=== PATIENT | male | born 1995 | race African-American/Black ===

== ENCOUNTER 2017-10-13 17:38 | Emergency (ER) | payer SELFPAY ==
[2017-10-13] MEDS ORDERED: CODEINE 30MG/APAP 300MG TAB ONE (20:14)
--- NOTE | 2017-10-13 20:55 | RAD REPORT ---
EXAM DESCRIPTION: RAD - Foot Left 3 View - 10/13/2017 8:08 pm CLINICAL HISTORY: Nonhealing wound left foot, left foot pain COMPARISON: None. FINDINGS: No acute or chronic fracture changes seen. No dislocation or periosteal reaction. No destr uctive bone process seen to suspect osteomyelitis. Soft tissue injury is evident over the dorsum of the foot near the ankle joint. No foreign body or ai r. IMPRESSION: Soft tissue injury is evident but no bone abnormality seen.
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
== END 2017-10-13 21:51 | disposition home or self-care (01) ==
LOC: ER 17:38
DX: S90.812A Abrasion, left foot, initial encounter (principal); V09.20XA Pedestrian injured in traffic accident involving unspecified motor vehicles, initial encounter; I10 Essential (primary) hypertension; Z91.030 Bee allergy status; F17.210 Nicotine dependence, cigarettes, uncomplicated
CPT/HCPCS: 99283

== ENCOUNTER 2017-12-01 23:38 | Emergency (ER) | payer SELFPAY ==
[2017-12-02] MEDS ORDERED: PANTOPRAZOLE 40MG TABLET PO ONE (00:26)
[2017-12-02 00:41] LABS: Absolute Lymphocytes (CBC) 4.6 K/uL (0.7-4.9); Absolute Monocytes 1.2 K/uL (0.1-1.3); Absolute Neutrophil 6.5 K/uL (1.8-8.0); Basophils % 0.5 % (0-1.3); Eosinophils % 2.1 % (0-4.4); Hematocrit 43.7 % (39.6-49.0); Lymphocytes % 36.6 % (15.3-44.8); MCH 29.4 pg (27.0-35.0); MCV 87.2 fL (80-100); MPV 8.6 fL (7.6-11.3); Monocytes % 9.8 % (3.3-12.3); RBC Red Blood Cell Count 5.01 M/uL (4.33-5.43)
--- NOTE | 2017-12-02 02:01 | ER ---
Nurse's Notes [facility] Name: Do Vega Age: 22 yrs Sex: Male : 1995 Arrival Date: 12/01/2017 Time: 23:39 Bed 18 Private MD: Diagnosis: Abdominal tenderness;Diarrhea, unspecified Presentation: 12/01 23:51 Presenting complaint: Patient states: Pt. c/o ABD pain and diarrhea x 2+ years. Pt. rk2 states that he has been seen in ED several times in past for same s/s and was told that he needed to see a specialist; however, he has never followed up. Pt. states noted bright and dark blood in his stools off and on as well. Nausea. Transition of care: patient was not received from another setting of care. Onset of symptoms was December 01, 2017. Risk Assessment: Do you want to hurt yourself or someone else? Patient reports no desire to harm self or others. Initial Sepsis Screen: Does the patient meet any 2 criteria? HR > 90 bpm. No. Patient's initial sepsis screen is negative. Does the patient have a suspected source of infection? Yes: No. Patient's initial sepsis screen is negative. Care prior to arrival: None. 23:51 Method Of Arrival: Ambulatory [facility] 23:51 Acuity: PRESTON 3 rk2 Historical: - Allergies: 23:54 Bees; rk2 - Home Meds: 12/02 02:13 lisinopril Oral [Active]; lp1 - PMHx: 12/01 23:54 Hypertension; rk2 - PSHx: 12/02 02:13 None; lp1 - Immunization history:: Adult Immunizations not up to date, Pneumococcal vaccine is not up to date, Flu vaccine is not up to date. - Social history:: Smoking status: Patient uses tobacco products, smokes one-half pack cigarettes per day. - Ebola Screening: : Patient negative for fever greater than or equal to 101.5 degrees Fahrenheit, and additional compatible Ebola Virus Disease symptoms No symptoms or risks identified at this time. Screenin/22 23:53 Abuse screen: Denies threats or abuse. Denies injuries from another. Nutritional lp1 screening: No deficits noted. Tuberculosis screening: No symptoms or risk factors identified. Fall Risk None identified. Assessment: 23:51 General: Appears in no apparent distress. Behavior is calm, cooperative, appropriate lp1 for age. Pain: Complains of pain in right lower quadrant and left lower quadrant Pain currently is 7 out of 10 on a pain scale. Quality of pain is described as sharp. Neuro: Level of Consciousness is awake, alert, obeys commands. Cardiovascular: Patient's skin is warm and dry. Respiratory: Respiratory effort is even, unlabored. GI: Abdomen is non-distended, Bowel sounds present X 4 quads. Abdomen is tender to palpation in right lower quadrant and left lower quadrant Reports cramping, diarrhea. : No signs and/or symptoms were reported regarding the genitourinary system. EENT: No signs and/or symptoms were reported regarding the EENT system. Derm: Skin is intact, Skin is dry, Skin is normal. Musculoskeletal: Circulation, motion, and sensation intact. 12/02 01:00 Reassessment: Patient appears in no apparent distress at this time. Patient and/or lp1 family updated on plan of care and expected duration. Pain level reassessed. Patient is alert, oriented x 3, equal unlabored respirations, skin warm/dry/pink. Vital Signs: 12/01 23:54 BP 179 / 102; Pulse 104; Resp 18; Temp 98.1; Pulse Ox 97% on R/A; rk2 12/02 01:00 BP 156 / 90; Pulse 82; Resp 18; Pulse Ox 100% on R/A; lp1 ED Course: 12/01 23:39 Patient arrived in ED. am2 23:51 Aurora Valladares, RN is Primary Nurse. lp1 23:54 Triage completed. rk2 23:54 Patient has correct armband on for positive identification. Placed in gown. Pulse ox lp1 on. NIBP on. 23:54 Arm band placed on. rk2 12/02 00:13 Tammy Cueva FNP-C is PHCP. snw 00:13 Linus Vega MD is Attending Physician. snw 00:38 Initial lab(s) drawn, by me, sent to lab. lp1 00:44 Patient moved to radiology via wheelchair. kw 00:44 X-ray completed. Patient tolerated procedure well. kw 00:44 Patient moved back from radiology. kw 00:45 Abdomen Acute Series XRAY In Process Unspecified. EDMS 02:12 No provider procedures requiring assistance completed. Patient did not have IV access lp1 during this emergency room visit. Administered Medications: 00:30 Drug: ProTONIX 40 mg Route: PO; lp1 01:30 Follow up: Response: No adverse reaction lp1 02:15 Not Given (Patient left prior to med administration): TORadol 60 mg IM once lp1 Outcome: 02:01 Discharge ordered by MD. knight 02:13 Discharged to home ambulatory. lp1 02:13 Condition: good 02:13 Discharge instructions given to patient, Patient left prior to receiving discharge papers and teaching 02:14 Patient left the ED. lp1 Signatures: Dispatcher [employer] EDMS Tammy Cueva, MICROBIOLOGY TECHNICIAN-C MICROBIOLOGY TECHNICIAN-Csnw Kay Hollingsworth Laura, RN RN lp1 Jessie Treviño am2 Anna Doan RN RN rk2
--- NOTE | 2017-12-02 02:02 | EDPHYS ---
Physician Documentation [facility] Name: Do Vega Age: 22 yrs Sex: Male : 1995 Arrival Date: 12/01/2017 Time: 23:39 Bed 18 Private MD: ED Physician Linus Vega HPI: 12/02 00:49 This 22 yrs old Black Male presents to ER via Ambulatory with complaints of Abdominal snw Pain, Rectal Bleeding. 00:49 The patient presents with abdominal pain that is diffuse. Onset: The symptoms/episode snw began/occurred gradually, years with exacerbations and remissions of symptoms. The symptoms do not radiate. Associated signs and symptoms: Pertinent positives: blood in stools, diarrhea, mucus stools. Severity of pain: At its worst the pain was moderate. The patient has experienced similar episodes in the past, chronically. The patient has not recently seen a physician. Historical: - Allergies: 12/01 23:54 Bees; rk2 - Home Meds: 12/02 02:13 lisinopril Oral [Active]; lp1 - PMHx: 12/01 23:54 Hypertension; rk2 - PSHx: 12/02 02:13 None; lp1 - Immunization history:: Adult Immunizations not up to date, Pneumococcal vaccine is not up to date, Flu vaccine is not up to date. - Social history:: Smoking status: Patient uses tobacco products, smokes one-half pack cigarettes per day. - Ebola Screening: : Patient negative for fever greater than or equal to 101.5 degrees Fahrenheit, and additional compatible Ebola Virus Disease symptoms No symptoms or risks identified at this time. ROS: 00:51 Constitutional: Negative for fever, chills, and weight loss, Eyes: Negative for injury, snw pain, redness, and discharge, ENT: Negative for injury, pain, and discharge, Neck: Negative for injury, pain, and swelling, Cardiovascular: Negative for chest pain, palpitations, and edema, Respiratory: Negative for shortness of breath, cough, wheezing, and pleuritic chest pain, Back: Negative for injury and pain, : Negative for injury, bleeding, discharge, and swelling, MS/Extremity: Negative for injury and deformity, Skin: Negative for injury, rash, and discoloration, Neuro: Negative for headache, weakness, numbness, tingling, and seizure. 00:51 Abdomen/GI: Positive for abdominal pain, diarrhea. Exam: 00:45 Constitutional: This is a well developed, well nourished patient who is awake, alert, snw and in no acute distress. Head/Face: Normocephalic, atraumatic. Eyes: Pupils equal round and reactive to light, extra-ocular motions intact. Lids and lashes normal. Conjunctiva and sclera are non-icteric and not injected. Cornea within normal limits. Periorbital areas with no swelling, redness, or edema. ENT: Nares patent. No nasal discharge, no septal abnormalities noted. Tympanic membranes are normal and external auditory canals are clear. Oropharynx with no redness, swelling, or masses, exudates, or evidence of obstruction, uvula midline. Mucous membranes moist. Neck: Trachea midline, no thyromegaly or masses palpated, and no cervical lymphadenopathy. Supple, full range of motion without nuchal rigidity, or vertebral point tenderness. No Meningismus. Chest/axilla: Normal chest wall appearance and motion. Nontender with no deformity. No lesions are appreciated. 00:45 Respiratory: Lungs have equal breath sounds bilaterally, clear to auscultation and percussion. No rales, rhonchi or wheezes noted. No increased work of breathing, no retractions or nasal flaring. Abdomen/GI: Soft, non-tender, with normal bowel sounds. No distension or tympany. No guarding or rebound. Mild tenderness throughout. Back: No spinal tenderness. No costovertebral tenderness. Full range of motion. Skin: Warm, dry with normal turgor. Normal color with no rashes, no lesions, and no evidence of cellulitis. MS/ Extremity: Pulses equal, no cyanosis. Neurovascular intact. Full, normal range of motion. Neuro: Awake and alert, GCS 15, oriented to person, place, time, and situation. Cranial nerves II-XII grossly intact. Motor strength 5/5 in all extremities. Sensory grossly intact. Cerebellar exam normal. Normal gait. 00:45 Cardiovascular: Rate: tachycardic. Vital Signs: 12/01 23:54 BP 179 / 102; Pulse 104; Resp 18; Temp 98.1; Pulse Ox 97% on R/A; rk2 12/02 01:00 BP 156 / 90; Pulse 82; Resp 18; Pulse Ox 100% on R/A; lp1 MDM: 00:13 Patient medically screened. snw 04:00 Data reviewed: vital signs, nurses notes. Data interpreted: Pulse oximetry: on room air snw is 100 %. Interpretation: normal. Counseling: I had a detailed discussion with the patient and/or guardian regarding: the historical points, exam findings, and any diagnostic results supporting the discharge/admit diagnosis, the presence of at least one elevated blood pressure reading (>120/80) during this emergency department visit, lab results, radiology results, the need for outpatient follow up, to return to the emergency department if symptoms worsen or persist or if there are any questions or concerns that arise at home. Special discussion: Based on the patient's Hx, exam, and Dx evaluation, there is no indication for emergent surgery or inpatient Tx. It is understood by the patient/guardian that if the Sx's persist or worsen they need to return immediately for re-evaluation. Based on the history and exam findings, there is no indication for further emergent testing or inpatient evaluation. I discussed with the patient/guardian the need to see the painter interior finish for further evaluation of the symptoms. I discussed with the patient/guardian the need to see the primary care provider for further evaluation of the symptoms. 12/02 00:16 Order name: CBC with Diff; Complete Time: 00:45 snw 12/02 00:16 Order name: Abdomen Acute Series XRAY snw Administered Medications: 00:30 Drug: ProTONIX 40 mg Route: PO; lp1 01:30 Follow up: Response: No adverse reaction lp1 02:15 Not Given (Patient left prior to med administration): TORadol 60 mg IM once lp1 Disposition: 12/02/17 02:01 Discharged to Home. Impression: Abdominal tenderness, Diarrhea, unspecified. - Condition is Stable. - Discharge Instructions: Abdominal Pain, Adult, Food Choices to Help Relieve Diarrhea, Adult, Diarrhea, Potassium Content of Foods, Irritable Bowel Syndrome, Adult, Rehydration, Adult. - Prescriptions for Bentyl 20 mg Oral Tablet - take 1 tablet by ORAL route every 6 hours As needed; 20 tablet. - Medication Reconciliation Form, Thank You Letter, Antibiotic Education, Prescription Opioid Use form. - Follow up: Private Physician; When: 2 - 3 days; Reason: Recheck today's complaints, Continuance of care, Re-evaluation by your physician. Follow up: Emergency Department; When: As needed; Reason: Worsening of condition. - Problem is an acute exacerbation. - Symptoms are unchanged. Addendum: 12/03/2017 07:04 Co-signature as Attending Physician, Linus Vega MD I agree with the assessment and c wilson plan of care. Signatures: Dispatcher [employer] EDLinus Cox MD MD cha Therrien, Shelly, SUPERVISOR STAGE CARPENTRY-C SUPERVISOR STAGE CARPENTRY-Csnw Aurora Valladares RN RN lp1 Anna Doan RN RN rk2 Corrections: (The following items were deleted from the chart) 12/02 02:14 02:01 12/02/2017 02:01 Discharged to Home. Impression: Abdominal tenderness; Diarrhea, lp1 unspecified. Condition is Stable. Forms are Medication Reconciliation Form, Thank You Letter, Antibiotic Education, Prescription Opioid Use. Follow up: Private Physician; When: 2 - 3 days; Reason: Recheck today's complaints, Continuance of care, Re-evaluation by your physician. Follow up: Emergency Department; When: As needed; Reason: Worsening of condition. Problem is an acute exacerbation. Symptoms are unchanged. snw
--- NOTE | 2017-12-02 08:34 | RAD REPORT ---
EXAM DESCRIPTION: RAD - Abdomen Acute Series - 12/02/2017 12:49 am CLINICAL HISTORY: Diarrhea, abdominal pain COMPARISON: 09/12/2017 FINDINGS: Lungs are clear. Heart size and vessels are normal. No pleural effusion, pneumothorax or o ther acute cardiopulmonary process seen. Bowel gas pattern is nonspecific. No bowel obstruction, free air or other acute findings. No suspicio us calcifications. No other suspicious for significant findings. IMPRESSION: Negative acute abdomen series.
== END 2017-12-02 02:14 | disposition home or self-care (01) ==
LOC: ER 23:38
DX: R19.7 Diarrhea, unspecified (principal); I10 Essential (primary) hypertension; Z91.030 Bee allergy status
CPT/HCPCS: 36415; 74022; 85025; 99284

== ENCOUNTER 2018-01-15 00:17 | Emergency (ER) | payer SELFPAY ==
[2018-01-15] MEDS ORDERED: HYDROCODONE/APAP 5/325 MG TAB ONE (00:41)
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
--- NOTE | 2018-01-15 08:42 | RAD REPORT ---
EXAM DESCRIPTION: RAD - Foot Right 3 View - 01/15/2018 12:51 am CLINICAL HISTORY: PAIN COMPARISON: None FINDINGS: Right ankle and right foot, multiple projections are submitted. No bone or joint abnormality is detected.
--- NOTE | 2018-01-15 10:09 | RAD REPORT ---
EXAM DESCRIPTION: RAD - Ankle Right 3 View - 01/15/2018 12:50 am CLINICAL HISTORY: PAIN COMPARISON: None FINDINGS: Right ankle and right foot, multiple projections are submitted. No bone or joint abnormality is detected.
== END 2018-01-15 01:53 | disposition home or self-care (01) ==
LOC: ER 00:17
DX: S93.691A Other sprain of right foot, initial encounter (principal); I10 Essential (primary) hypertension; F17.210 Nicotine dependence, cigarettes, uncomplicated; Y04.0XXA Assault by unarmed brawl or fight, initial encounter; Y93.9 Activity, unspecified; Y92.9 Unspecified place or not applicable; Y99.9 Unspecified external cause status; Z91.030 Bee allergy status
CPT/HCPCS: 99284

== ENCOUNTER 2018-04-13 10:47 | Emergency (ER) | payer SELFPAY ==
--- NOTE | 2018-04-13 11:53 | EDPHYS ---
Physician Documentation [facility] Name: Do Vega Age: 22 yrs Sex: Male : 1995 Arrival Date: 04/13/2018 Time: 10:51 Bed 11 Private MD: ED Physician Kamini Crawford HPI: 04/13 11:49 This 22 yrs old Black Male presents to ER via Ambulatory with complaints of Leg Pain. ma2 11:49 The patient presents with pain. The complaints affect the medial aspect of left calf. ma2 Onset: The symptoms/episode began/occurred gradually, 1 week(s) ago. Associated signs and symptoms: Pertinent positives: swelling, warmth, Pertinent negatives fever, nausea, weakness. Severity of symptoms: At their worst the symptoms were moderate, in the emergency department the symptoms are unchanged. The patient has not experienced similar symptoms in the past. had a tattoo last week and having swelling and pain of left leg . Historical: - Allergies: 11:22 Bees; aj1 - Home Meds: 11:22 None [Active]; aj1 - PMHx: 11:22 Hypertension; aj1 - Immunization history:: Flu vaccine is not up to date. - Social history:: Smoking status: Patient uses tobacco products, smokes one pack cigarettes per day. Patient/guardian denies using alcohol, street drugs, The patient lives with family. - Ebola Screening: : Patient denies travel to an Ebola-affected area in the 21 days before illness onset. - Family history:: not pertinent. ROS: 11:49 Constitutional: Negative for fever, chills, and weight loss, Cardiovascular: Negative ma2 for chest pain, palpitations, and edema, Respiratory: Negative for shortness of breath, cough, wheezing, and pleuritic chest pain, Abdomen/GI: Negative for abdominal pain, nausea, diarrhea, and constipation. 11:49 MS/extremity: Positive for erythema, pain, Negative for bite, deformity, puncture, swelling, warmth. 11:49 All other systems are negative. Exam: 11:49 Constitutional: This is a well developed, well nourished patient who is awake, alert, ma2 and in no acute distress. Head/Face: Normocephalic, atraumatic. Neck: Trachea midline, no thyromegaly or masses palpated, and no cervical lymphadenopathy. Supple, full range of motion without nuchal rigidity, or vertebral point tenderness. No Meningismus. Cardiovascular: Regular rate and rhythm with a normal S1 and S2. No gallops, murmurs, or rubs. Normal PMI, no JVD. No pulse deficits. Respiratory: Lungs have equal breath sounds bilaterally, clear to auscultation and percussion. No rales, rhonchi or wheezes noted. No increased work of breathing, no retractions or nasal flaring. Abdomen/GI: Soft, non-tender, with normal bowel sounds. No distension or tympany. No guarding or rebound. No evidence of tenderness throughout. Neuro: Awake and alert, GCS 15, oriented to person, place, time, and situation. Cranial nerves II-XII grossly intact. Motor strength 5/5 in all extremities. Sensory grossly intact. Cerebellar exam normal. Normal gait. 11:49 Musculoskeletal/extremity: Circulation is intact in all extremities. Compartment Syndrome exam of affected extremity: is normal. DVT Exam: No signs of deep vein thrombosis. left chin erythema and warmth over a fresh tattoo, n ofluctuance, no crepitations . Vital Signs: 11:22 BP 153 / 108; Pulse 105; Resp 18; Temp 97.5; Pulse Ox 99% on R/A; Weight 113.4 kg; aj1 Height 5 ft. 11 in. (180.34 cm); Pain 9/10; 11:22 Body Mass Index 34.87 (113.40 kg, 180.34 cm) aj1 MDM: 11:33 Patient medically screened. oh2 11:49 Differential diagnosis: contusion, abrasion, tendonitis, cellulitis. Data reviewed: [facility] vital signs, nurses notes. Counseling: I had a detailed discussion with the patient and/or guardian regarding: the historical points, exam findings, and any diagnostic results supporting the discharge/admit diagnosis, the presence of at least one elevated blood pressure reading (>120/80) during this emergency department visit, the need for outpatient follow up. Administered Medications: No medications were administered Disposition: 04/13/18 11:52 Discharged to Home. Impression: Cellulitis and acute lymphangitis of other parts of limb. - Condition is Stable. - Discharge Instructions: Cellulitis, Adult, Form - Excuse from Work, School, or Physical Activity. - Prescriptions for Clindamycin HCl 300 mg Oral Capsule - take 1 capsule by ORAL route every 6 hours for 10 days; 40 capsule. Tylenol- Codeine #3 300-30 mg Oral Tablet - take 2 tablet by ORAL route every 6 hours As needed; 30 tablet. - Medication Reconciliation Form, Thank You Letter, Antibiotic Education, Prescription Opioid Use form. - Follow up: Private Physician; When: Tomorrow; Reason: Continuance of care. Signatures: Tosha Church RN RN aj1 Nicol Walker RN RN ss Kamini Crawford MD MD ma2 Corrections: (The following items were deleted from the chart) 12:23 11:52 04/13/2018 11:52 Discharged to Home. Impression: Cellulitis and acute ss lymphangitis of other parts of limb. Condition is Stable. Forms are Medication Reconciliation Form, Thank You Letter, Antibiotic Education, Prescription Opioid Use. Follow up: Private Physician; When: Tomorrow; Reason: Continuance of care. ma2
--- NOTE | 2018-04-13 11:53 | ER ---
Nurse's Notes [facility] Name: Do Vega Age: 22 yrs Sex: Male : 1995 Arrival Date: 04/13/2018 Time: 10:51 Bed 11 Private MD: Diagnosis: Cellulitis and acute lymphangitis of other parts of limb Presentation: 04/13 11:20 Presenting complaint: Patient states: He has been having pain in his left lower leg aj1 since Thursday. Denies injury. Transition of care: patient was not received from another setting of care. Onset of symptoms was April 10, 2018. Risk Assessment: Do you want to hurt yourself or someone else? Patient reports no desire to harm self or others. Initial Sepsis Screen: Does the patient meet any 2 criteria? HR > 90 bpm. No. Patient's initial sepsis screen is negative. Does the patient have a suspected source of infection? No. Patient's initial sepsis screen is negative. Care prior to arrival: None. 11:20 Method Of Arrival: Ambulatory aj1 11:20 Acuity: PRESTNO 4 aj1 Triage Assessment: 11:22 General: Appears in no apparent distress. uncomfortable, Behavior is calm, cooperative, aj1 appropriate for age. Pain: Complains of pain in left workman Pain currently is 9 out of 10 on a pain scale. Neuro: Level of Consciousness is awake, alert, obeys commands. Cardiovascular: Patient's skin is warm and dry. Respiratory: Airway is patent Respiratory effort is even, unlabored, Respiratory pattern is regular, symmetrical. Historical: - Allergies: 11:22 Bees; aj1 - Home Meds: 11:22 None [Active]; aj1 - PMHx: 11:22 Hypertension; aj1 - Immunization history:: Flu vaccine is not up to date. - Social history:: Smoking status: Patient uses tobacco products, smokes one pack cigarettes per day. Patient/guardian denies using alcohol, street drugs, The patient lives with family. - Ebola Screening: : Patient denies travel to an Ebola-affected area in the 21 days before illness onset. - Family history:: not pertinent. Screenin:35 Abuse screen: Denies threats or abuse. Denies injuries from another. Nutritional ss screening: No deficits noted. Tuberculosis screening: Never had TB. Fall Risk None identified. Assessment: 11:35 General: Appears in no apparent distress. comfortable, Behavior is calm, cooperative, ss Denies fever, feeling ill, fatigue, chills. General: Patient recently got a tattoo three days ago, and has been working in work boots without covering new tattoo. Pt reports he noticed swelling and pain increased one day after getting tattoo. Swelling and pain has increased over time. . Pain: Complains of pain in left workman Pain currently is 9 out of 10 on a pain scale. Quality of pain is described as tender, throbbing, Pain began 2-3 days ago. Is continuous. Neuro: Level of Consciousness is awake, alert, obeys commands, Oriented to person, place, time, situation. Cardiovascular: Capillary refill < 3 seconds is brisk in bilateral fingers Patient's skin is warm and dry. Respiratory: Airway is patent Respiratory effort is even, unlabored, Respiratory pattern is regular, symmetrical. EENT: Nares are clear Oral mucosa is moist. Derm: Skin is intact, is healthy with good turgor, Skin is dry, Skin is pink, warm \T\ dry. normal. Musculoskeletal: Swelling present in left workman. Vital Signs: 11:22 BP 153 / 108; Pulse 105; Resp 18; Temp 97.5; Pulse Ox 99% on R/A; Weight 113.4 kg; aj1 Height 5 ft. 11 in. (180.34 cm); Pain 9/10; 11:22 Body Mass Index 34.87 (113.40 kg, 180.34 cm) aj1 ED Course: 10:51 Patient arrived in ED. rg4 11:21 Triage completed. aj1 11:22 Arm band placed on Patient placed in waiting room, Patient notified of wait time. aj1 11:33 Kamini Crawford MD is Attending Physician. ma2 11:35 Patient has correct armband on for positive identification. Bed in low position. Call ss light in reach. 12:13 Nicol Walker, JADON is Primary Nurse. ss 12:15 No provider procedures requiring assistance completed. Patient did not have IV access ss during this emergency room visit. Administered Medications: No medications were administered Outcome: 11:52 Discharge ordered by . ma2 12:15 Discharged to home ambulatory. ss 12:15 Condition: good 12:15 Discharge instructions given to patient, Instructed on discharge instructions, follow up and referral plans. medication usage, wound care, Demonstrated understanding of instructions, follow-up care, medications, wound care, Prescriptions given X 2. 12:23 Patient left the ED. Signatures: Tosha Church RN RN aj1 Nicol Walker RN RN ss Anabella Hawkins rg4 Kamini Crawford MD MD ma2
== END 2018-04-13 12:23 | disposition home or self-care (01) ==
LOC: ER 10:47
DX: L03.116 Cellulitis of left lower limb (principal); L03.126 Acute lymphangitis of left lower limb; I10 Essential (primary) hypertension; F17.210 Nicotine dependence, cigarettes, uncomplicated; Z91.030 Bee allergy status
CPT/HCPCS: 99282

== ENCOUNTER 2018-05-26 16:58 | Emergency (ER) | payer SELFPAY ==
--- NOTE | 2018-05-26 19:18 | RAD REPORT ---
EXAM DESCRIPTION: Chapito Roman (2 Views)05/26/2018 7:05 pm CLINICAL HISTORY: Cough COMPARISON: November 2017 FINDINGS: The lungs appear clear of acute infiltrate. The heart is normal size IMPRESSION: No acute abnormalities displayed
[2018-05-26] MEDS ORDERED: ALBUTEROL 2.5 MG/3 ML NEB SOL ONE (19:33)
[2018-05-26] MEDS ORDERED: DEXAMETHASONE 4 MG TAB ONE (19:33)
--- NOTE | 2018-05-26 19:34 | ER ---
Nurse's Notes [facility] Name: Do Vega Age: 22 yrs Sex: Male : 1995 Arrival Date: 05/26/2018 Time: 17:00 Bed 19 Private MD: None, None Diagnosis: Bronchitis, not specified as acute or chronic Presentation: 05/26 17:05 Presenting complaint: Patient states: Productive cough that started 2 days ago with aj pain to center of chest with inspiration and palpation. Transition of care: patient was not received from another setting of care. Onset of symptoms was May 24, 2018. Risk Assessment: Do you want to hurt yourself or someone else? Patient reports no desire to harm self or others. Initial Sepsis Screen: Does the patient meet any 2 criteria? No. Patient's initial sepsis screen is negative. Does the patient have a suspected source of infection? No. Patient's initial sepsis screen is negative. Care prior to arrival: None. 17:05 Method Of Arrival: Ambulatory aj 17:05 Acuity: PRESTON 3 aj Triage Assessment: 17:06 General: Appears in no apparent distress. comfortable, Behavior is calm, cooperative, aj appropriate for age. Pain: Complains of pain in chest. Neuro: Level of Consciousness is awake, alert, obeys commands, Oriented to person, place, time, situation, Appropriate for age. Cardiovascular: Capillary refill < 3 seconds in bilateral fingers Patient's skin is warm and dry. Respiratory: Reports cough that is pain with cough pain with respiration Airway is patent Respiratory effort is even, unlabored, Respiratory pattern is regular, symmetrical. Derm: Skin is intact, is healthy with good turgor, Skin is pink, warm \T\ dry. normal. Historical: - Allergies: 17:06 Bees; aj - Home Meds: 17:06 None [Active]; aj - PMHx: 17:06 Hypertension; aj - PSHx: 17:06 None; aj - Immunization history:: Adult Immunizations up to date. - Social history:: Smoking status: Patient uses tobacco products, smokes one pack cigarettes per day. - Ebola Screening: : Patient negative for fever greater than or equal to 101.5 degrees Fahrenheit, and additional compatible Ebola Virus Disease symptoms Patient denies exposure to infectious person Patient denies travel to an Ebola-affected area in the 21 days before illness onset No symptoms or risks identified at this time. Screenin:43 Abuse screen: Denies threats or abuse. Nutritional screening: No deficits noted. jd3 Tuberculosis screening: No symptoms or risk factors identified. Fall Risk No IV (0 pts). Ambulatory Aid- None/Bed Rest/Nurse Assist (0 pts). Gait- Normal/Bed Rest/Wheelchair (0 pts) Mental Status- Oriented to own ability (0 pts). Total Dior Fall Scale indicates No Risk (0-24 pts). Assessment: 19:32 General: Appears in no apparent distress. uncomfortable, Behavior is calm, cooperative, jd3 appropriate for age. Pain: Complains of pain in chest Pain does not radiate. Pain began gradually. Neuro: Level of Consciousness is awake, alert, obeys commands, Oriented to person, place, time, situation, Appropriate for age. Cardiovascular: Capillary refill < 3 seconds Patient's skin is warm and dry. Respiratory: Reports cough that is pain with cough Airway is patent Respiratory effort is even, unlabored, Respiratory pattern is regular, symmetrical. GI: No signs and/or symptoms were reported involving the gastrointestinal system. : No signs and/or symptoms were reported regarding the genitourinary system. EENT: No signs and/or symptoms were reported regarding the EENT system. Derm: Skin is intact, Skin is dry, Skin is normal, Skin temperature is warm. Musculoskeletal: Circulation, motion, and sensation intact. Range of motion: intact in all extremities. Vital Signs: 17:06 BP 167 / 88; Pulse 90; Resp 20; Temp 98.9; Pulse Ox 99% on R/A; Weight 124.74 kg; aj Height 6 ft. 0 in. (182.88 cm); 19:16 BP 152 / 64; Pulse 84; Resp 18; Pulse Ox 98% on R/A; mt 17:06 Body Mass Index 37.30 (124.74 kg, 182.88 cm) aj ED Course: 17:00 Patient arrived in ED. mr 17:01 None, None is Private Physician. mr 17:05 Triage completed. aj 17:06 Arm band placed on left wrist. Patient placed in waiting room, Patient notified of wait aj time. 17:56 [facility]C [facility] 17:56 Monty Wallace MD is Attending Physician. snw 18:01 Moises Wray, RN is Primary Nurse. jl7 19:03 Chest Pa And Lat (2 Views) XRAY In Process Unspecified. EDMS 19:32 Primary Nurse role handed off by Moises Wray, JADON rollins7 19:32 Gamal Bowen, RN is Primary Nurse. jd3 19:44 Patient has correct armband on for positive identification. Pulse ox on. NIBP on. jd3 19:44 No provider procedures requiring assistance completed. Patient did not have IV access jd3 during this emergency room visit. Patient maintains SpO2 saturation greater than 95% on room air. Administered Medications: 19:30 Drug: Albuterol 2.5 mg Route: Inhalation; jd3 19:45 Follow up: Response: No adverse reaction jd3 19:30 Drug: Decadron 8 mg Route: PO; jd3 19:45 Follow up: Response: No adverse reaction jd3 Outcome: 19:33 Discharge ordered by MD. snw 19:44 Discharged to home ambulatory. jd3 19:44 Condition: stable 19:44 Discharge instructions given to patient, Instructed on discharge instructions, follow up and referral plans. medication usage, Demonstrated understanding of instructions, follow-up care, medications, Prescriptions given X 3. 19:46 Patient left the ED. jd3 Signatures: Dispatcher [employer] Jessie Armstrong, RN Tammy Humphrey, CLOCK AND WATCH HANDS PAINTER-C CLOCK AND WATCH HANDS PAINTER-Rowena Shanta Curry mr Moises Wray, RN JADON [facility] Gamal Bowen RN RN jabdulaziz
--- NOTE | 2018-05-26 19:34 | EDPHYS ---
Physician Documentation [facility] Name: Do Vega Age: 22 yrs Sex: Male : 1995 Arrival Date: 05/26/2018 Time: 17:00 Bed 19 Private MD: None, None ED Physician Monty Wallace HPI: 05/26 19:42 This 22 yrs old Black Male presents to ER via Ambulatory with complaints of Painful snw Cough. 19:42 The patient or guardian reports cough. snw Historical: - Allergies: 17:06 Bees; aj - Home Meds: 17:06 None [Active]; aj - PMHx: 17:06 Hypertension; aj - PSHx: 17:06 None; aj - Immunization history:: Adult Immunizations up to date. - Social history:: Smoking status: Patient uses tobacco products, smokes one pack cigarettes per day. - Ebola Screening: : Patient negative for fever greater than or equal to 101.5 degrees Fahrenheit, and additional compatible Ebola Virus Disease symptoms Patient denies exposure to infectious person Patient denies travel to an Ebola-affected area in the 21 days before illness onset No symptoms or risks identified at this time. ROS: 19:38 Constitutional: Negative for fever, chills, and weight loss, Eyes: Negative for injury, snw pain, redness, and discharge, ENT: Negative for injury, pain, and discharge, Neck: Negative for injury, pain, and swelling, Cardiovascular: Negative for chest pain, palpitations, and edema, Abdomen/GI: Negative for abdominal pain, nausea, vomiting, diarrhea, and constipation, Back: Negative for injury and pain, : Negative for injury, bleeding, discharge, and swelling, MS/Extremity: Negative for injury and deformity, Skin: Negative for injury, rash, and discoloration, Neuro: Negative for headache, weakness, numbness, tingling, and seizure, Psych: Negative for depression, anxiety, suicide ideation, homicidal ideation, and hallucinations. 19:38 Respiratory: Positive for cough, with no reported sputum. Exam: 19:38 Constitutional: This is a well developed, well nourished patient who is awake, alert, snw and in no acute distress. Head/Face: Normocephalic, atraumatic. Eyes: Pupils equal round and reactive to light, extra-ocular motions intact. Lids and lashes normal. Conjunctiva and sclera are non-icteric and not injected. Cornea within normal limits. Periorbital areas with no swelling, redness, or edema. ENT: Nares patent. No nasal discharge, no septal abnormalities noted. Tympanic membranes are normal and external auditory canals are clear. Oropharynx with no redness, swelling, or masses, exudates, or evidence of obstruction, uvula midline. Mucous membranes moist. Neck: Trachea midline, no thyromegaly or masses palpated, and no cervical lymphadenopathy. Supple, full range of motion without nuchal rigidity, or vertebral point tenderness. No Meningismus. Chest/axilla: Normal chest wall appearance and motion. Nontender with no deformity. No lesions are appreciated. Cardiovascular: Regular rate and rhythm with a normal S1 and S2. No gallops, murmurs, or rubs. Normal PMI, no JVD. No pulse deficits. Abdomen/GI: Soft, non-tender, with normal bowel sounds. No distension or tympany. No guarding or rebound. No evidence of tenderness throughout. Back: No spinal tenderness. No costovertebral tenderness. Full range of motion. Skin: Warm, dry with normal turgor. Normal color with no rashes, no lesions, and no evidence of cellulitis. MS/ Extremity: Pulses equal, no cyanosis. Neurovascular intact. Full, normal range of motion. Neuro: Awake and alert, GCS 15, oriented to person, place, time, and situation. Cranial nerves II-XII grossly intact. Motor strength 5/5 in all extremities. Sensory grossly intact. Cerebellar exam normal. Normal gait. 19:38 Respiratory: the patient does not display signs of respiratory distress, Respirations: normal, Breath sounds: wheezing: that is mild, is heard diffusely. Vital Signs: 17:06 BP 167 / 88; Pulse 90; Resp 20; Temp 98.9; Pulse Ox 99% on R/A; Weight 124.74 kg; aj Height 6 ft. 0 in. (182.88 cm); 19:16 BP 152 / 64; Pulse 84; Resp 18; Pulse Ox 98% on R/A; mt 17:06 Body Mass Index 37.30 (124.74 kg, 182.88 cm) aj MDM: 18:03 Patient medically screened. snw 19:39 Data reviewed: vital signs, nurses notes. Data interpreted: Pulse oximetry: on room air snw is 98 %. Interpretation: normal. Counseling: I had a detailed discussion with the patient and/or guardian regarding: the historical points, exam findings, and any diagnostic results supporting the discharge/admit diagnosis, the presence of at least one elevated blood pressure reading (>120/80) during this emergency department visit, lab results, radiology results, the need for outpatient follow up, for definitive care, to return to the emergency department if symptoms worsen or persist or if there are any questions or concerns that arise at home. Special discussion: I have referred the patient to see his PCP for further evaluation of high blood pressure. Based on the history and exam findings, there is no indication for further emergent testing or inpatient evaluation. I discussed with the patient/guardian the need to see the primary care provider for further evaluation of the symptoms. 05/26 17:19 Order name: Chest Pa And Lat (2 Views) XRAY; Complete Time: 19:32 snw Administered Medications: 19:30 Drug: Albuterol 2.5 mg Route: Inhalation; jd3 19:45 Follow up: Response: No adverse reaction jd3 19:30 Drug: Decadron 8 mg Route: PO; jd3 19:45 Follow up: Response: No adverse reaction jd3 Disposition: 05/27 13:55 Co-signature as Attending Physician, Monty Wallace MD I agree with the assessment and kdr plan of care. Disposition: 05/26/18 19:33 Discharged to Home. Impression: Bronchitis, not specified as acute or chronic. - Condition is Stable. - Discharge Instructions: Acute Bronchitis, Adult, Hypertension, How to Use an Inhaler, Cool Mist Vaporizer. - Prescriptions for Tessalon Perles 100 mg Oral Capsule - take 1 capsule by ORAL route every 8 hours As needed; 15 capsule. Prednisone 20 mg Oral Tablet - take 2 tablet by ORAL route once daily for 5 days; 10 tablet. Albuterol Sulfate 90 mcg/actuation - inhale 1-2 puff by INHALATION route every 4-6 hours; 1 Inhaler. - Work release form, Medication Reconciliation Form, Thank You Letter, Antibiotic Education, Prescription Opioid Use form. - Follow up: Private Physician; When: 2 - 3 days; Reason: Recheck today's complaints, Continuance of care, Re-evaluation by your physician. Follow up: Emergency Department; When: As needed; Reason: Worsening of condition. Signatures: Dispatcher [employer] Jessie Armstrong, RN RN Monty New MD MD kdr Therrien, Shelly, OPTIMIZATION MANAGER-C OPTIMIZATION MANAGER-Gamal Leal, RN RN jd3 Corrections: (The following items were deleted from the chart) 05/26 19:46 19:33 05/26/2018 19:33 Discharged to Home. Impression: Bronchitis, not specified as jd3 acute or chronic. Condition is Stable. Forms are Medication Reconciliation Form, Thank You Letter, Antibiotic Education, Prescription Opioid Use. Follow up: Private Physician; When: 2 - 3 days; Reason: Recheck today's complaints, Continuance of care, Re-evaluation by your physician. Follow up: Emergency Department; When: As needed; Reason: Worsening of condition. snw
== END 2018-05-26 19:46 | disposition home or self-care (01) ==
LOC: ER 16:58
DX: J40 Bronchitis, not specified as acute or chronic (principal); I10 Essential (primary) hypertension; F17.210 Nicotine dependence, cigarettes, uncomplicated; Z91.030 Bee allergy status
CPT/HCPCS: 71046; 99285

== ENCOUNTER 2018-06-09 15:40 | Emergency (ER) | payer SELFPAY ==
[2018-06-09] MEDS ORDERED: DEXAMETHASONE 10 MG/ML VIAL ONE (18:07)
--- NOTE | 2018-06-09 18:46 | ER ---
Nurse's Notes [facility] Name: Do Vega Age: 22 yrs Sex: Male : 1995 Arrival Date: 06/09/2018 Time: 15:43 Bed 11 Private MD: Diagnosis: Acute bronchitis Presentation: 06/09 16:02 Presenting complaint: Patient states: Sore throat since this AM. Transition of care: aj patient was not received from another setting of care. Onset of symptoms was June 09, 2018. Risk Assessment: Do you want to hurt yourself or someone else? Patient reports no desire to harm self or others. Initial Sepsis Screen: Does the patient meet any 2 criteria? No. Patient's initial sepsis screen is negative. Does the patient have a suspected source of infection? No. Patient's initial sepsis screen is negative. Care prior to arrival: None. 16:02 Method Of Arrival: Ambulatory 16:02 Acuity: PRESTON 4 Triage Assessment: 16:03 General: Appears in no apparent distress. comfortable, Behavior is calm, cooperative, aj appropriate for age. Pain:. EENT: Reports pain when swallowing. Neuro: Level of Consciousness is awake, alert, obeys commands, Oriented to person, place, time, situation, Appropriate for age. Respiratory: Airway is patent Respiratory effort is even, unlabored, Respiratory pattern is regular, symmetrical. Derm: Skin is intact, is healthy with good turgor, Skin is pink, warm \T\ dry. normal. Historical: - Allergies: 16:03 Bees; aj - Home Meds: 16:03 None [Active]; aj - PMHx: 16:03 Hypertension; aj - PSHx: 16:03 None; aj - Immunization history:: Adult Immunizations up to date. - Social history:: Smoking status: Patient uses tobacco products, smokes one-half pack cigarettes per day, smokes one pack cigarettes per day. - Ebola Screening: : Patient negative for fever greater than or equal to 101.5 degrees Fahrenheit, and additional compatible Ebola Virus Disease symptoms Patient denies exposure to infectious person Patient denies travel to an Ebola-affected area in the 21 days before illness onset No symptoms or risks identified at this time. Screenin:00 Abuse screen: Denies threats or abuse. Denies injuries from another. Nutritional ao screening: No deficits noted. Tuberculosis screening: No symptoms or risk factors identified. Fall Risk None identified. Assessment: 17:00 General: Appears in no apparent distress. Behavior is calm, cooperative. Neuro: Level iw of Consciousness is awake, alert, obeys commands, Moves all extremities. Full function. Cardiovascular: Patient's skin is warm and dry. Respiratory: Airway is patent Breath sounds are clear. Respiratory: Airway is patent Respiratory effort is even, unlabored. EENT: Throat is reddened has enlarged tonsils bilaterally with gag reflex present. Derm: Skin is intact, is healthy with good turgor. Musculoskeletal: Range of motion: limited in all extremities. Vital Signs: 16:03 BP 145 / 88; Pulse 92; Resp 18; Temp 97.7; Pulse Ox 100% on R/A; Weight 117.93 kg; aj Height 6 ft. 0 in. (182.88 cm); 16:03 Body Mass Index 35.26 (117.93 kg, 182.88 cm) aj ED Course: 15:43 Patient arrived in ED. mr 16:02 Triage completed. aj 16:03 Arm band placed on left wrist. Patient placed in waiting room, Patient notified of wait aj time. Labs ordered per protocol. 17:41 Lillian Hawkins, JADON is Primary Nurse. iw 17:43 Omkar Che PA is PHCP. [facility] 17:43 Linus Vega MD is Attending Physician. [facility] 19:01 Patient has correct armband on for positive identification. ao 19:01 No provider procedures requiring assistance completed. Patient did not have IV access ao during this emergency room visit. Administered Medications: 18:04 Drug: Dexamethasone 10 mg Route: IM; Site: left deltoid; iw 18:20 Follow up: Response: No adverse reaction iw Outcome: 18:44 Discharge ordered by . [facility] 19:01 Discharged to home ambulatory. ao 19:01 Condition: stable 19:01 Discharge instructions given to patient, Instructed on discharge instructions, follow up and referral plans. Demonstrated understanding of instructions, follow-up care, Prescriptions given X 2. 19:02 Patient left the ED. ao Signatures: Jessie Young RN Omkar Zarate PA PA jmm Patricio Shanta mr Lillian Hawkins RN RN iw Ortiz, Alex, RN RN ao
--- NOTE | 2018-06-09 18:46 | EDPHYS ---
Physician Documentation [facility] Name: Do Vega Age: 22 yrs Sex: Male : 1995 Arrival Date: 06/09/2018 Time: 15:43 Bed 11 Private MD: ED Physician Linus Vega HPI: 06/09 17:50 This 22 yrs old Black Male presents to ER via Ambulatory with complaints of Sore Throat.jmm 17:50 The patient or guardian reports cough, that is intermittent. Onset: The jmm symptoms/episode began/occurred gradually, 1 week(s) ago. Modifying factors: The symptoms are alleviated by nothing. the symptoms are aggravated by nothing. Associated signs and symptoms: Pertinent positives: sore throat. This is a 22 year old male with a history of htn that presents to the ED with cough for a week with sore throat beginning this morning. Patient denies fever. . Historical: - Allergies: 16:03 Bees; aj - Home Meds: 16:03 None [Active]; aj - PMHx: 16:03 Hypertension; aj - PSHx: 16:03 None; aj - Immunization history:: Adult Immunizations up to date. - Social history:: Smoking status: Patient uses tobacco products, smokes one-half pack cigarettes per day, smokes one pack cigarettes per day. - Ebola Screening: : Patient negative for fever greater than or equal to 101.5 degrees Fahrenheit, and additional compatible Ebola Virus Disease symptoms Patient denies exposure to infectious person Patient denies travel to an Ebola-affected area in the 21 days before illness onset No symptoms or risks identified at this time. ROS: 17:50 Constitutional: Negative for fever, chills, and weight loss, Eyes: Negative for injury, jmm pain, redness, and discharge, ENT: Negative for injury, pain, and discharge. Exam: 18:21 Constitutional: This is a well developed, well nourished patient who is awake, alert, jmm and in no acute distress. Head/Face: atraumatic. Eyes: EOMI, no conjunctival erythema appreciated 18:21 Neck: Trachea midline, Supple Chest/axilla: Normal chest wall appearance and motion. 18:21 ENT: Posterior pharynx: erythema, that is mild. 18:21 Cardiovascular: Rate: normal, Rhythm: regular, Pulses: no pulse deficits are appreciated. 18:21 Respiratory: the patient does not display signs of respiratory distress, Respirations: normal, Breath sounds: are clear throughout. 18:21 Abdomen/GI: Inspection: abdomen appears normal, Bowel sounds: normal, Palpation: abdomen is soft and non-tender, in all quadrants. 18:21 Back: ROM is normal. 18:21 Musculoskeletal/extremity: ROM: intact in all extremities. 18:21 Skin: Appearance: Color: normal in color. 18:21 Neuro: Orientation: is normal, Mentation: is normal, Memory: is normal. 18:21 Psych: Behavior/mood is pleasant, cooperative. Vital Signs: 16:03 BP 145 / 88; Pulse 92; Resp 18; Temp 97.7; Pulse Ox 100% on R/A; Weight 117.93 kg; aj Height 6 ft. 0 in. (182.88 cm); 16:03 Body Mass Index 35.26 (117.93 kg, 182.88 cm) MDM: 17:[address] [facility] 18:22 Data reviewed: vital signs, nurses notes. [facility] 18:22 Counseling: I had a detailed discussion with the patient and/or guardian regarding: the [facility] historical points, exam findings, and any diagnostic results supporting the discharge/admit diagnosis, lab results, the need for outpatient follow up, to return to the emergency department if symptoms worsen or persist or if there are any questions or concerns that arise at home. 18:43 Data reviewed: lab test result(s), radiologic studies. [facility] 06/09 16:01 Order name: Strep; Complete Time: 17:47 06/09 16:40 Order name: Throat Culture EDMS Administered Medications: 18:04 Drug: Dexamethasone 10 mg Route: IM; Site: left deltoid; 18:20 Follow up: Response: No adverse reaction iw Disposition: 06/10 07:08 Co-signature as Attending Physician, Linus Vega MD I agree with the assessment and [facility] plan of care. Disposition: 06/09/18 18:44 Discharged to Home. Impression: Acute bronchitis. - Condition is Stable. - Discharge Instructions: Acute Bronchitis, Adult. - Prescriptions for Zithromax Z- Edward 250 mg Oral Tablet - take 1 tablet by ORAL route as directed for 5 days Day 1 - take two (2) tablets one time. Day 2, 3, 4 , 5 take one (1) tablet once daily.; 6 tablet. Albuterol Sulfate 90 mcg/actuation - inhale 1-2 puff by INHALATION route every 4-6 hours; 1 Inhaler. - Medication Reconciliation Form, Thank You Letter, Antibiotic Education, Prescription Opioid Use, Work release form form. - Follow up: Private Physician; When: As needed; Reason: Recheck today's complaints, Continuance of care, Re-evaluation by your physician. Signatures: Dispatcher [employer] Jessie Armstrong, Linus Vernon RN, MD MD cha Mickail, Joel, PA PA jmm Williams, Irene, RN RN iw Ortiz, Alex, RN RN ao Corrections: (The following items were deleted from the chart) 06/09 19:02 18:44 06/09/2018 18:44 Discharged to Home. Impression: Acute bronchitis. Condition is ao Stable. Forms are Medication Reconciliation Form, Thank You Letter, Antibiotic Education, Prescription Opioid Use. Follow up: Private Physician; When: As needed; Reason: Recheck today's complaints, Continuance of care, Re-evaluation by your physician. ruth
== END 2018-06-09 19:02 | disposition home or self-care (01) ==
LOC: ER 15:40
DX: J20.9 Acute bronchitis, unspecified (principal); I10 Essential (primary) hypertension; F17.210 Nicotine dependence, cigarettes, uncomplicated; Z91.030 Bee allergy status
CPT/HCPCS: 87070; 87081; 96372; 99283; J1100

== ENCOUNTER 2018-07-17 17:07 | Emergency (ER) | payer BC, SELFPAY ==
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
== END 2018-07-17 19:44 | disposition left against medical advice (07) ==
LOC: ER 17:07
DX: Z53.21 Procedure and treatment not carried out due to patient leaving prior to being seen by health care provider (principal)
CPT/HCPCS: 99281

== ENCOUNTER 2018-07-19 17:09 | Emergency (ER) | payer BC ==
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
[2018-07-19] MEDS ORDERED: CYCLOBENZAPRINE 10 MG TAB ONE (17:59)
== END 2018-07-19 17:59 | disposition home or self-care (01) ==
LOC: ER 17:09
DX: M54.13 Radiculopathy, cervicothoracic region (principal); M54.16 Radiculopathy, lumbar region; M79.10 Myalgia, unspecified site; I10 Essential (primary) hypertension; V49.40XA Driver injured in collision with unspecified motor vehicles in traffic accident, initial encounter; F17.210 Nicotine dependence, cigarettes, uncomplicated
CPT/HCPCS: 99283

== ENCOUNTER 2018-11-25 15:44 | Emergency (ER) | payer BC, SELFPAY ==
--- NOTE | 2018-11-25 17:23 | RAD REPORT ---
EXAM DESCRIPTION: RAD - Chest Single View - 11/25/2018 5:13 pm CLINICAL HISTORY: CHEST PAIN Chest pain. COMPARISON: Chest Pa And Lat (2 Views) dated 05/26/2018; Abdomen Acute Series dated 12/02/2017; Chest Single View dated 09/20/2016 FINDINGS: Portable technique limits examination quality. The lungs are grossly clear. The heart is normal in size. No displaced fractures. IMPRESSION: No acute intrathoracic process suspected.
[2018-11-25 17:33] LABS: Urine Blood NEGATIVE (NEG); Urine Glucose NEGATIVE (NEG); Urine Protein 1+ (NEG); Urine Specific Gravity 1.015 (1.005-1.030); Urine pH 8.5 (5.0-7.0)
[2018-11-25 17:40] LABS: Absolute Lymphocytes (CBC) 2.4 K/uL (0.7-4.9); Absolute Monocytes 1.8 K/uL (0.1-1.3); Absolute Neutrophil 7.2 K/uL (1.8-8.0); Basophils % 0.7 % (0-1.3); Eosinophils % 0.4 % (0-4.4); Hematocrit 47.4 % (39.6-49.0); Lymphocytes % 20.4 % (15.3-44.8); MPV 8.7 fL (7.6-11.3); Monocytes % 15.9 % (3.3-12.3); RBC Red Blood Cell Count 5.42 M/uL (4.33-5.43)
[2018-11-25 17:43] LABS: Protime INR 1.32
[2018-11-25 17:57] LABS: ALT/SGPT 43 U/L (12-78); AST/SGOT 26 U/L (15-37); Albumin 3.9 g/dL (3.4-5.0); Alkaline Phosphatase 87 U/L (45-117); BUN Blood Urea Nitrogen 9 mg/dL (7-18); Bicarbonate 27 mmol/L (21-32); Bilirubin Direct 0.1 mg/dL (0-0.2); Bilirubin Total 0.5 mg/dL (0.2-1.0); Glucose Level 87 mg/dL (74-106); NT PRO-BNP 13 pg/mL (<125); Potassium 3.9 mmol/L (3.5-5.1); Protein, Total 8.6 g/dL (6.4-8.2); Sodium Level 139 mmol/L (136-145); Troponin (Emerg Dept Use Only) < 0.02 ng/mL (0.0-0.045)
[2018-11-25] MEDS ORDERED: NA CHLORIDE 0.9% 1,000 ML ONE (18:01)
[2018-11-25 18:42] LABS: Barbiturates NEGATIVE (NEGATIVE); Benzodiazepines NEGATIVE (NEGATIVE); Cocaine NEGATIVE (NEGATIVE); METHAMPHETAM NEGATIVE (NEGATIVE); Methadone NEGATIVE (NEGATIVE); Opiates NEGATIVE (NEGATIVE); Phencyclidine NEGATIVE (NEGATIVE); THC Cannibis NEGATIVE (NEGATIVE)
--- NOTE | 2018-11-25 18:57 | EDPHYS ---
Physician Documentation [facility] Name: Do Vega Age: 23 yrs Sex: Male : 1995 Arrival Date: 11/25/2018 Time: 15:46 Bed 17 Private MD: ED Physician Rodney Carlton HPI: 11/25 17:05 This 23 yrs old Black Male presents to ER via Ambulatory with complaints of Chest Pain. pm1 17:05 The patient or guardian reports chest pain that is located primarily in the mid-sternal pm1 area. The pain does not radiate. Associated signs and symptoms: Pertinent positives: cough, Pertinent negatives: abdominal pain, dizziness, headache, nausea, shortness of breath, vomiting. The chest pain is described as burning. Duration: The patient or guardian reports a single episode. Modifying factors: The symptoms are alleviated by nothing. the symptoms are aggravated by Eating food and drinking fluids. Worse with lying down . Severity of pain: in the emergency department the pain is actually worse. The patient has not experienced similar symptoms in the past. The patient has not recently seen a physician. Historical: - Allergies: 15:51 Bees; hj - PMHx: 15:51 Hypertension; hj - PSHx: 15:51 None; hj - Immunization history:: Adult Immunizations up to date. - Social history:: Smoking status: unknown. - Ebola Screening: : No symptoms or risks identified at this time. ROS: 17:05 Constitutional: Negative for fever, chills, and weight loss, Eyes: Negative for injury, pm1 pain, redness, and discharge, ENT: Negative for injury, pain, and discharge, Neck: Negative for injury, pain, and swelling. 17:05 Respiratory: Negative for shortness of breath, cough, wheezing, and pleuritic chest pain, Abdomen/GI: Negative for abdominal pain, nausea, vomiting, diarrhea, and constipation, Back: Negative for injury and pain, : Negative for injury, bleeding, discharge, and swelling, MS/Extremity: Negative for injury and deformity, Skin: Negative for injury, rash, and discoloration, Neuro: Negative for headache, weakness, numbness, tingling, and seizure. 17:05 Cardiovascular: Positive for chest pain, Negative for edema, orthopnea, palpitations. Exam: 17:05 Constitutional: This is a well developed, well nourished patient who is awake, alert, pm1 and in no acute distress. Head/Face: Normocephalic, atraumatic. Eyes: Pupils equal round and reactive to light, extra-ocular motions intact. Lids and lashes normal. Conjunctiva and sclera are non-icteric and not injected. Cornea within normal limits. Periorbital areas with no swelling, redness, or edema. ENT: Nares patent. No nasal discharge, no septal abnormalities noted. Tympanic membranes are normal and external auditory canals are clear. Oropharynx with no redness, swelling, or masses, exudates, or evidence of obstruction, uvula midline. Mucous membranes moist. Neck: Trachea midline, no thyromegaly or masses palpated, and no cervical lymphadenopathy. Supple, full range of motion without nuchal rigidity, or vertebral point tenderness. No Meningismus. Chest/axilla: Normal chest wall appearance and motion. Nontender with no deformity. No lesions are appreciated. Cardiovascular: Regular rate and rhythm with a normal S1 and S2. No gallops, murmurs, or rubs. Normal PMI, no JVD. No pulse deficits. Respiratory: Lungs have equal breath sounds bilaterally, clear to auscultation and percussion. No rales, rhonchi or wheezes noted. No increased work of breathing, no retractions or nasal flaring. Abdomen/GI: Soft, non-tender, with normal bowel sounds. No distension or tympany. No guarding or rebound. No evidence of tenderness throughout. Back: No spinal tenderness. No costovertebral tenderness. Full range of motion. Skin: Warm, dry with normal turgor. Normal color with no rashes, no lesions, and no evidence of cellulitis. MS/ Extremity: Pulses equal, no cyanosis. Neurovascular intact. Full, normal range of motion. 17:05 Neuro: Orientation: is normal, Motor: is normal, moves all fours, Gait: is steady, at a normal pace, without difficulty. Vital Signs: 15:51 BP 159 / 106; Pulse 103; Resp 18; Temp 99.9(TE); Pulse Ox 99% on R/A; Weight 117.93 kg; hj Height 6 ft. 0 in. (182.88 cm); Pain 10/10; 17:00 BP 104 / 84; Pulse 104; Resp 23; Pulse Ox 99% ; bp 18:19 BP 155 / 112; Pulse 100; Resp 20; Pulse Ox 100% ; bp 15:51 Body Mass Index 35.26 (117.93 kg, 182.88 cm) MDM: 16:36 Patient medically screened. pm1 18:55 Data reviewed: vital signs. Data interpreted: Pulse oximetry: on room air is 100 %. pm1 Interpretation: normal. Counseling: I had a detailed discussion with the patient and/or guardian regarding: the historical points, exam findings, and any diagnostic results supporting the discharge/admit diagnosis, lab results, radiology results, the need for outpatient follow up, to return to the emergency department if symptoms worsen or persist or if there are any questions or concerns that arise at home. 19:20 ED course: improvement in symptoms with GI cocktail. pm1 11/25 16:40 Order name: Basic Metabolic Panel pm1 11/25 16:40 Order name: CBC with Diff pm1 11/25 16:40 Order name: LFT's; Complete Time: 18:18 pm1 11/25 16:40 Order name: Magnesium; Complete Time: 18:18 pm1 11/25 16:40 Order name: NT PRO-BNP; Complete Time: 18:18 pm1 11/25 16:40 Order name: PT-INR; Complete Time: 17:44 pm1 11/25 16:40 Order name: Troponin (emerg Dept Use Only); Complete Time: 18:18 pm1 11/25 16:40 Order name: XRAY Chest (1 view); Complete Time: 17:25 pm1 11/25 16:41 Order name: Basic Metabolic Panel; Complete Time: 18:18 EDMS 11/25 16:41 Order name: CBC with Automated Diff; Complete Time: 17:44 EDMS 11/25 17:23 Order name: Urine Dipstick--Ancillary (enter results); Complete Time: 17:33 eb 11/25 18:20 Order name: Urine Drug Screen; Complete Time: 18:51 bp 11/25 15:54 Order name: EKG - Nurse/Tech; Complete Time: 15:56 hj 11/25 16:40 Order name: EKG; Complete Time: 16:42 pm1 11/25 16:40 Order name: Cardiac monitoring; Complete Time: 17:03 pm1 05/16 16:40 Order name: IV Saline Lock; Complete Time: 17:03 pm1 11/25 16:40 Order name: Labs collected and sent; Complete Time: 17:03 pm1 11/25 16:40 Order name: O2 Per Protocol; Complete Time: 17:03 pm1 11/25 16:40 Order name: O2 Sat Monitoring; Complete Time: 17:04 pm1 11/25 17:22 Order name: Labs - recollect needed; Complete Time: 17:26 eb Administered Medications: 17:30 Drug: NS 0.9% 1000 ml Route: IV; Rate: 1000 ml; Site: right antecubital; bp 18:30 Follow up: IV Status: Completed infusion; IV Intake: 1000ml bp 18:45 Drug: GI Cocktail without - (Maalox Suspension 30 ml, Lidocaine Liquid 2 % 15 bp ml) Route: PO; 19:06 Follow up: Response: No adverse reaction bp Disposition: 11/26 09:23 Co-signature as Attending Physician, Rodney Carlton MD. Disposition: 11/25/18 18:56 Discharged to Home. Impression: Chest pain, unspecified. - Condition is Stable. - Discharge Instructions: Nonspecific Chest Pain. - Prescriptions for Pepcid 20 mg Oral Tablet - take 1 tablet by ORAL route every 12 hours for 10 days; 20 tablet. - Medication Reconciliation Form, Thank You Letter, Antibiotic Education, Prescription Opioid Use form. - Follow up: Emergency Department; When: As needed; Reason: Worsening of condition. Follow up: Private Physician; When: 2 - 3 days; Reason: Recheck today's complaints, Continuance of care, Re-evaluation by your physician. - Problem is new. - Symptoms have improved. Signatures: Dispatcher [employer] EDDC Lance Medina RN RN hj Shamar Ramos, MANAGER PORTABLE MANAGER PORTABLE pm1 Rodney Carlton MD MD Shawn Collier RN RN Tessa Chau Corrections: (The following items were deleted from the chart) 11/25 19:09 18:56 11/25/2018 18:56 Discharged to Home. Impression: Chest pain, unspecified. bp Condition is Stable. Forms are Medication Reconciliation Form, Thank You Letter, Antibiotic Education, Prescription Opioid Use. Follow up: Emergency Department; When: As needed; Reason: Worsening of condition. Follow up: Private Physician; When: 2 - 3 days; Reason: Recheck today's complaints, Continuance of care, Re-evaluation by your physician. Problem is new. Symptoms have improved. pm1
--- NOTE | 2018-11-25 18:57 | ER ---
[facility] Name: Do Vega Age: 23 yrs Sex: Male : 1995 Arrival Date: 11/25/2018 Time: 15:46 Bed 17 Private MD: Diagnosis: Chest pain, unspecified Presentation: 11/25 15:48 Presenting complaint: Patient states: yesterday, i started having this pain on my chest hj area, its not a burning sensation, it hurts, like having a heavy feeling; reports SOB; denies sore throat; denies N/V; denies acid reflux; reports cough but the chest pain started before the cough;. Transition of care: patient was not received from another setting of care. Onset of symptoms was November 25, 2018. Risk Assessment: Do you want to hurt yourself or someone else? Patient reports no desire to harm self or others. Initial Sepsis Screen: Does the patient meet any 2 criteria? No. Patient's initial sepsis screen is negative. Does the patient have a suspected source of infection? No. Patient's initial sepsis screen is negative. Care prior to arrival: None. 15:48 Method Of Arrival: Ambulatory 15:48 Acuity: PRESTON 3 hj Triage Assessment: 16:22 General: Appears in no apparent distress. comfortable, obese, Behavior is calm, bp cooperative, appropriate for age. Pain: Complains of pain in chest. EENT: No deficits noted. Neuro: Level of Consciousness is awake, alert, obeys commands, Oriented to person, place, time, situation, Appropriate for age. Cardiovascular: Reports chest pain, since 3 DAYS. Respiratory: Airway is patent Respiratory effort is even, unlabored, Respiratory pattern is regular, symmetrical. GI: No signs and/or symptoms were reported involving the gastrointestinal system. : No signs and/or symptoms were reported regarding the genitourinary system. Derm: No deficits noted. Musculoskeletal: Circulation, motion, and sensation intact. Range of motion: intact in all extremities. Historical: - Allergies: 15:51 Bees; hj - PMHx: 15:51 Hypertension; hj - PSHx: 15:51 None; hj - Immunization history:: Adult Immunizations up to date. - Social history:: Smoking status: unknown. - Ebola Screening: : No symptoms or risks identified at this time. Screenin:24 Abuse screen: Denies threats or abuse. Denies injuries from another. Nutritional bp screening: No deficits noted. Tuberculosis screening: No symptoms or risk factors identified. Fall Risk None identified. Assessment: 16:24 General: SEE TRIAGE NOTE. Respiratory: Reports cough that is Airway is patent Breath bp sounds are clear bilaterally. 16:24 Respiratory: Airway is patent Respiratory effort is even, unlabored, Respiratory bp pattern is regular, symmetrical. 16:30 EENT: Throat is clear. bp 17:26 Reassessment: LABS RECOLLECTED AND RESENT. PT VS REMAIN STABLE. bp 18:18 Reassessment: ALL CURRENT ORDERS COMPLETE, NO S/S ACUTE DISTRESS. bp 19:06 Reassessment: PT D/C HOME AMBULATORY, DX WITH UNSPECIFIED CHEST PAIN. bp Vital Signs: 15:51 BP 159 / 106; Pulse 103; Resp 18; Temp 99.9(TE); Pulse Ox 99% on R/A; Weight 117.93 kg; hj Height 6 ft. 0 in. (182.88 cm); Pain 10/10; 17:00 BP 104 / 84; Pulse 104; Resp 23; Pulse Ox 99% ; bp 18:19 BP 155 / 112; Pulse 100; Resp 20; Pulse Ox 100% ; bp 15:51 Body Mass Index 35.26 (117.93 kg, 182.88 cm) ED Course: 15:46 Patient arrived in ED. mr 15:51 Triage completed. hj 15:52 Arm band placed on left wrist. hj 15:56 EKG done, by headend technician. reviewed by Rodney Carlton MD. 3 16:21 Shawn Collier, RN is Primary Nurse. bp 16:24 Patient has correct armband on for positive identification. Bed in low position. Call bp light in reach. Side rails up X2. 16:36 Shamar Ramos NP is PHCP. pm1 16:36 Rodney Carlton MD is Attending Physician. pm1 16:50 Urine collected: clean catch specimen, clear. 3 17:01 Initial lab(s) drawn, by me, sent to lab. Inserted saline lock: 18 gauge in right 3 antecubital area, using aseptic technique. Blood collected. 17:13 XRAY Chest (1 view) In Process Unspecified. EDMS 17:30 Lab(s) recollected, by me, sent to lab. [facility] 19:07 No provider procedures requiring assistance completed. IV discontinued, intact, bp bleeding controlled, No redness/swelling at site. Pressure dressing applied. Administered Medications: 17:30 Drug: NS 0.9% 1000 ml Route: IV; Rate: 1000 ml; Site: right antecubital; bp 18:30 Follow up: IV Status: Completed infusion; IV Intake: 1000ml bp 18:45 Drug: GI Cocktail without - (Maalox Suspension 30 ml, Lidocaine Liquid 2 % 15 bp ml) Route: PO; 19:06 Follow up: Response: No adverse reaction bp Intake: 18:30 IV: 1000ml; Total: 1000ml. bp Outcome: 18:56 Discharge ordered by MD. pm1 19:07 Discharged to home ambulatory, with family. bp 19:07 Condition: stable 19:07 Discharge instructions given to patient, Instructed on discharge instructions, follow up and referral plans. medication usage, Demonstrated understanding of instructions, follow-up care, medications, Prescriptions given X 1. 19:09 Patient left the ED. bp Signatures: Dispatcher [employer] GAVINOCO Sahnta Curry Henry, RN RN Shamar Ramos NP GL ACCOUNTANT 1 Bonnie Richards [facility] Shawn Collier, JADON RN Yamileth Dougherty 3 Corrections: (The following items were deleted from the chart) 15:53 15:48 Presenting complaint: Patient states: yesterday, i started having this pain on my hj chest area, its not a burning sensation, it hurts; reports SOB; denies sore throat; denies N/V; denies acid reflux; hj 15:53 15:51 Pulse 103bpm; Resp 18bpm; Pulse Ox 99% RA; Temp 99.9F Temporal; 117.93 kg; Height 6 ft. 0 in.; BMI: 35.2; Pain 10/10; hj 15:55 15:48 Presenting complaint: Patient states: yesterday, i started having this pain on my hj chest area, its not a burning sensation, it hurts, like having a heavy feeling; reports SOB; denies sore throat; denies N/V; denies acid reflux; hj
[2018-11-25] MEDS ORDERED: LIDOCAINE VISCOUS 2% SOLN 15 ML UDC ONE (19:01)
[2018-11-25] MEDS ORDERED: MAGNE/ALUM HYDROXD 30 ML UCUP ONE (19:01)
[2018-11-25 19:14] VITALS: TEMP 99.9
[2018-11-25 19:17] VITALS: BP 155/112; O2SAT 100
--- NOTE | 2018-11-26 08:29 | EKG ---
Test Date: 2018-11-25 Test Time: 15:56:02 Loan Collector: CHULA MEASUREMENT RESULTS: Intervals: Rate: 107 NC: 140 QRSD: 78 QT: 304 QTc: 405 [place]: P: 55 NC: 140 QRS: 69 T: 24 INTERPRETIVE STATEMENTS: Sinus tachycardia Otherwise normal ECG Compared to ECG 09/20/2016 04:02:41 No significant changes Electronically Signed On 11-26-18 08:28:03 CDT by Arley Scott
== END 2018-11-25 19:09 | disposition home or self-care (01) ==
LOC: ER 15:44
DX: R07.9 Chest pain, unspecified (principal); Z91.030 Bee allergy status
CPT/HCPCS: 36415; 71045; 80048; 80076; 80307; 81003; 83735; 83880; 84484; 85025; 85610; 93005; 96360; 99284; J7030

== ENCOUNTER 2018-11-28 20:34 | Inpatient (IN) | payer BC, SELFPAY ==
[2018-11-28 21:25] LABS: Absolute Lymphocytes (CBC) 5.7 K/uL (0.7-4.9); Absolute Monocytes 2.4 K/uL (0.1-1.3); Absolute Neutrophil 5.3 K/uL (1.8-8.0); Eosinophils % 0.2 % (0-4.4); Lymphocytes % 41.9 % (15.3-44.8); MPV 8.9 fL (7.6-11.3); Monocytes % 17.6 % (3.3-12.3)
[2018-11-28] MEDS ORDERED: LORazepam 2 MG/ML VIAL ONE (21:30)
[2018-11-28 21:38] LABS: BUN Blood Urea Nitrogen 9 mg/dL (7-18); Bicarbonate 22 mmol/L (21-32); Glucose Level 126 mg/dL (74-106); Potassium 3.2 mmol/L (3.5-5.1); Sodium Level 140 mmol/L (136-145)
[2018-11-28 22:00] LABS: Blood Morphology Comment NOT SEEN (NOT SEEN); Platelet Estimate ADEQ; Urine White Blood Cell Casts OK
--- NOTE | 2018-11-28 22:56 | EDPHYS ---
Physician Documentation [facility] Name: Do Vega Age: 23 yrs Sex: Male : 1995 Arrival Date: 11/28/2018 Time: 20:36 Bed 24 Private MD: ED Physician Sav Johnson HPI: 11/28 22:57 This 23 yrs old Black Male presents to ER via Ambulatory with complaints of Cough, kb Breathing Difficulty. 22:57 The patient or guardian reports cough, that is constant, described as moderate, with no kb sputum, difficulty breathing. Onset: The symptoms/episode began/occurred 4 day(s) ago. Severity of symptoms: At their worst the symptoms were moderate, in the emergency department the symptoms are unchanged. Modifying factors: The symptoms are alleviated by nothing, the symptoms are aggravated by nothing. Associated signs and symptoms: Pertinent positives: chest pain, Pertinent negatives: diarrhea, ear ache, fever, nausea, rhinorrhea, sore throat, vomiting. The patient has not experienced similar symptoms in the past. The patient has been recently seen at the [facility] Emergency Department, last week, for similar complaints labs were performed, X-rays were performed. 22:58 Pt reports chest pain, shortness of breath and cough for 4 days. Was seen her 3 days kb ago and diagnosed with GERD. States the symptoms have gotten worse. Has been smoking CBD oil for one year and has been smoking cigarettes for years. Historical: - Allergies: 20:42 Bees; la1 - PMHx: 20:42 Hypertension; la1 - Immunization history:: Adult Immunizations up to date. - Social history:: Smoking status: Patient uses tobacco products, smokes two packs cigarettes per day. - Ebola Screening: : No symptoms or risks identified at this time. ROS: 22:54 Constitutional: Negative for fever, chills, and weight loss, ENT: Negative for injury, kb pain, and discharge, Neck: Negative for injury, pain, and swelling, Abdomen/GI: Negative for abdominal pain, nausea, vomiting, diarrhea, and constipation, Back: Negative for injury and pain, MS/Extremity: Negative for injury and deformity, Skin: Negative for injury, rash, and discoloration, Neuro: Negative for headache, weakness, numbness, tingling, and seizure. 22:54 Cardiovascular: Positive for chest pain, Negative for edema, orthopnea, palpitations, paroxysmal nocturnal dyspnea. 22:54 Respiratory: Positive for cough, shortness of breath. Exam: 22:56 Constitutional: This is a well developed, well nourished patient who is awake, alert, kb and in no acute distress. Head/Face: Normocephalic, atraumatic. ENT: Nares patent. No nasal discharge, no septal abnormalities noted. Tympanic membranes are normal and external auditory canals are clear. Oropharynx with no redness, swelling, or masses, exudates, or evidence of obstruction, uvula midline. Mucous membranes moist. Neck: Trachea midline, no thyromegaly or masses palpated, and no cervical lymphadenopathy. Supple, full range of motion without nuchal rigidity, or vertebral point tenderness. No Meningismus. Chest/axilla: Normal chest wall appearance and motion. Nontender with no deformity. No lesions are appreciated. Cardiovascular: Regular rate and rhythm with a normal S1 and S2. No gallops, murmurs, or rubs. Normal PMI, no JVD. No pulse deficits. Respiratory: Lungs have equal breath sounds bilaterally, clear to auscultation and percussion. No rales, rhonchi or wheezes noted. No increased work of breathing, no retractions or nasal flaring. Abdomen/GI: Soft, non-tender, with normal bowel sounds. No distension or tympany. No guarding or rebound. No evidence of tenderness throughout. Back: No spinal tenderness. No costovertebral tenderness. Full range of motion. Skin: Warm, dry with normal turgor. Normal color with no rashes, no lesions, and no evidence of cellulitis. MS/ Extremity: Pulses equal, no cyanosis. Neurovascular intact. Full, normal range of motion. Neuro: Awake and alert, GCS 15, oriented to person, place, time, and situation. Cranial nerves II-XII grossly intact. Motor strength 5/5 in all extremities. Sensory grossly intact. Cerebellar exam normal. Normal gait. 22:56 Constitutional: The patient appears anxious. 22:59 ECG was reviewed by the Attending Physician. Vital Signs: 20:41 BP 134 / 100; Pulse 134; Resp 26; Temp 98.4; Pulse Ox 100% on R/A; Weight 122.47 kg; la1 Height 6 ft. 0 in. (182.88 cm); 21:21 BP 131 / 98; Pulse 121; Resp 26; Pulse Ox 98% on R/A; la1 22:29 BP 131 / 100; Pulse 109; Resp 18; Pulse Ox 98% on R/A; la1 23:32 BP 166 / 90; Pulse 115; Resp 16; Pulse Ox 98% on R/A; la1 20:41 Body Mass Index 36.62 (122.47 kg, 182.88 cm) la1 MDM: 20:41 Patient medically screened. kb 22:54 Data reviewed: vital signs, nurses notes. Data interpreted: Pulse oximetry: on room air kb is 98 %. Interpretation: normal. Counseling: I had a detailed discussion with the patient and/or guardian regarding: the historical points, exam findings, and any diagnostic results supporting the discharge/admit diagnosis, lab results, radiology results, the need for further work-up and treatment in the hospital. Physician consultation: Lex Green MD was contacted at 22:54, regarding admission, to the telemetry unit. patient's condition, and will see patient in ED, shortly. 11/28 20:55 Order name: CBC with Diff kb 11/28 20:55 Order name: Basic Metabolic Panel; Complete Time: 21:42 kb 11/28 20:55 Order name: D-Dimer; Complete Time: 21:44 kb 11/28 20:55 Order name: Flu; Complete Time: 21:48 kb 11/28 20:55 Order name: CBC with Automated Diff; Complete Time: 22:05 EDPA 11/28 21:45 Order name: CBC Smear Scan; Complete Time: 22:05 EDPA 11/28 20:55 Order name: IV Start; Complete Time: 21:21 kb 11/28 20:56 Order name: EKG; Complete Time: 20:57 kb 11/28 20:56 Order name: EKG - Nurse/Tech; Complete Time: 21:21 kb 11/28 21:43 Order name: CT Chest For PE Angio kb 11/28 22:50 Order name: Blood Culture Adult (2) kb EC:59 Rate is 133 beats/min. Rhythm is regular, Sinus tachycardia. QRS [place] is Normal. ME kb interval is normal at 154 msec. QRS interval is normal at 80 msec. QT interval is normal at 282 msec. Clinical impression: Sinus tachycardia. Interpreted by me. Reviewed by me. Administered Medications: 21:21 Drug: Ativan 0.5 mg Route: IVP; Site: right antecubital; la1 23:51 Follow up: Response: No adverse reaction; Anxiety decreased la1 23:51 Drug: LevaQUIN 750 mg Volume: 150 ml; Route: IVPB; Infused Over: 90 mins; Site: right la1 antecubital; 23:51 Follow up: IV Status: Infusion continued upon admission la1 Disposition: 11/29 06:56 Co-signature as Attending Physician, Sav Johnson MD I agree with the assessment and tw4 plan of care. Disposition: 11/28/18 22:55 Hospitalization ordered by Lex Green for Observation. Preliminary diagnosis are Dyspnea, Chest pain, unspecified, Tachycardia, unspecified. - Bed requested for Telemetry/MedSurg (observation). - Status is Observation. la1 - Condition is Stable. - Problem is new. - Symptoms are unchanged. UTI on Admission? No Signatures: Dispatcher [employer] EDPA Mi Burciaga, BUDDY-C BUDDY-Farhan Zelaya RN RN [facility] Lizeth Hawkins RN RN Sav Johnson MD MD tw4 Corrections: (The following items were deleted from the chart) 11/28 23:59 22:55 Hospitalization Ordered by Lex Green MD for Observation. Preliminary cg diagnosis is Dyspnea; Chest pain, unspecified; Tachycardia, unspecified. Bed requested for Telemetry/MedSurg (observation). Status is Observation. Condition is Stable. Problem is new. Symptoms are unchanged. UTI on Admission? No. kb 11/29 00:36 11/28 23:59 11/28/2018 22:55 Hospitalization Ordered by Lex Green MD for la1 Observation. Preliminary diagnosis is Dyspnea; Chest pain, unspecified; Tachycardia, unspecified. Bed requested for Telemetry/MedSurg (observation). Status is Observation. Condition is Stable. Problem is new. Symptoms are unchanged. UTI on Admission? No. cg
--- NOTE | 2018-11-28 22:56 | ER ---
Nurse's Notes [facility] Name: Do Vega Age: 23 yrs Sex: Male : 1995 Arrival Date: 11/28/2018 Time: 20:36 Bed 24 Private MD: Diagnosis: Dyspnea;Chest pain, unspecified;Tachycardia, unspecified Presentation: 11/28 20:41 Presenting complaint: Patient states: I have had an awful cough since . I cant la1 stop coughing. Transition of care: patient was not received from another setting of care. Onset of symptoms was November 28, 2018. Risk Assessment: Do you want to hurt yourself or someone else? Patient reports no desire to harm self or others. Initial Sepsis Screen: Does the patient meet any 2 criteria? No. Patient's initial sepsis screen is negative. Care prior to arrival: None. 20:41 Method Of Arrival: Ambulatory la1 20:41 Acuity: PRESTON 3 la1 Historical: - Allergies: 20:42 Bees; la1 - PMHx: 20:42 Hypertension; la1 - Immunization history:: Adult Immunizations up to date. - Social history:: Smoking status: Patient uses tobacco products, smokes two packs cigarettes per day. - Ebola Screening: : No symptoms or risks identified at this time. Screenin:43 Abuse screen: Denies threats or abuse. Nutritional screening: No deficits noted. la1 Tuberculosis screening: No symptoms or risk factors identified. Fall Risk None identified. Assessment: 20:42 General: Appears in no apparent distress. Behavior is cooperative, anxious. Neuro: la1 Level of Consciousness is awake, alert, obeys commands, Oriented to person, place, time, situation. Cardiovascular: Heart tones S1 S2 present Rhythm is sinus tachycardia. Respiratory: Airway is patent Trachea midline Respiratory effort is even, labored, Respiratory pattern is regular, symmetrical, Breath sounds are clear bilaterally. GI: No signs and/or symptoms were reported involving the gastrointestinal system. : No signs and/or symptoms were reported regarding the genitourinary system. 21:59 Reassessment: Patient appears in no apparent distress at this time. No changes from la1 previously documented assessment. Patient and/or family updated on plan of care and expected duration. Pain level reassessed. 22:30 Reassessment: Patient appears in no apparent distress at this time. No changes from la1 previously documented assessment. Patient and/or family updated on plan of care and expected duration. Pain level reassessed. Patient is alert, oriented x 3, equal unlabored respirations, skin warm/dry/pink. Vital Signs: 20:41 BP 134 / 100; Pulse 134; Resp 26; Temp 98.4; Pulse Ox 100% on R/A; Weight 122.47 kg; la1 Height 6 ft. 0 in. (182.88 cm); 21:21 BP 131 / 98; Pulse 121; Resp 26; Pulse Ox 98% on R/A; la1 22:29 BP 131 / 100; Pulse 109; Resp 18; Pulse Ox 98% on R/A; la1 23:32 BP 166 / 90; Pulse 115; Resp 16; Pulse Ox 98% on R/A; la1 20:41 Body Mass Index 36.62 (122.47 kg, 182.88 cm) la1 ED Course: 20:36 Patient arrived in ED. am2 20:36 Farhan Connolly RN is Primary Nurse. la1 20:41 Mi Burci[facility]-C [facility]. kb 20:41 Sav Johnson MD is Attending Physician. kb 20:41 Arm band placed on. EKG completed in triage. Results shown to MD. la1 20:42 Triage completed. la1 20:43 Call light in reach. Side rails up X 1. la1 21:21 Inserted saline lock: 22 gauge in right antecubital area, using aseptic technique. la1 Blood collected. 21:43 Notified Nurse Practitioner and/or Physician Certified Pharmacist Assistant of a critical lab result(s), la1 DDIMER [id number]. 21:[address] 22:22 CT Chest For PE Angio In Process Unspecified. EDMS 22:55 Lex Green MD is Hospitalizing Provider. kb 23:25 First set of blood cultures drawn. la1 23:45 Second set of blood cultures drawn by me. la1 11/29 00:36 No provider procedures requiring assistance completed. Patient admitted, IV remains in la1 place. Administered Medications: 11/28 21:21 Drug: Ativan 0.5 mg Route: IVP; Site: right antecubital; la1 23:51 Follow up: Response: No adverse reaction; Anxiety decreased la1 23:51 Drug: LevaQUIN 750 mg Volume: 150 ml; Route: IVPB; Infused Over: 90 mins; Site: right la1 antecubital; 23:51 Follow up: IV Status: Infusion continued upon admission la1 Outcome: 22:55 Decision to Hospitalize by Provider. destiny 11/29 00:36 Admitted to Tele accompanied by tech, via stretcher, room 402, with chart. la1 Condition: stable Instructed on the need for admit. 00:36 Patient left the ED. la1 Signatures: Dispatcher [employer] EDMi Gasca, LAUNCHING PAD MECHANIC-C LAUNCHING PAD MECHANIC-Ckb Matt Gonzalez Lee, RN RN la1 Jessie Treviño am2 Corrections: (The following items were deleted from the chart) 11/28 22:30 20:42 General: Appears in no apparent distress. Behavior is calm, cooperative, la1 la1
[2018-11-28] MEDS ORDERED: Levofloxacin 750mg IV 750 MG/150 ML BAG IV ONE (23:53)
--- NOTE | 2018-11-29 00:06 | P.HP ---
Certification for Inpatient Patient admitted to: Inpatient With expected LOS: >2 Midnights Practitioner: I am a practitioner with admitting privileges, knowledge of patient current condition, hospital course, and medical plan of care. Services: Services provided to patient in accordance with Admission requirements found in Title 42 Section 412.3 of the Code of Federal Regulations Patient History Date of Service: 11/28/18 Reason for admission: pneumonia History of Present Illness: Mr Vega is a 23 years old male with history of HTN, no medicated, who stat about 4 days ago with chest pain. He came to ED for evaluation, work up including CXR was negative and was discharged home. Later he start having productive cough, whitish secretion, no blood in his sputum. He also has had progressive SOB and sweating. He did not had fever or chills. No weight loss history. Lab work remarkable for leukocytosis 13.5K, D-Dimer 1008. Also potassium was low 3.2. CTA chest shows no PE, however, there are rounded areas bilaterally, measuring up to 3 cm, associated with bilateral hilar and subcarinal lymphadenopathy. He denied muscular or joint pain. Allergies Bees Allergy (Uncoded 09/12/17 17:17) Unknown Home medications list reviewed: Yes - Past Medical/Surgical History -: HTN Past Surgical History: Reviewed- Non-Contributory - Family History Family History: Reviewed- Non-Contributory - Social History Smoking Status: Current every day smoker (tobacco and cannabis oil (CBD)) Counseled patient to stop smoking for: less than 10 minutes CD- Drugs: Yes Place of Residence: Home Review of Systems 10-point ROS is otherwise unremarkable Physical Examination - Physical Exam General: Alert, In no apparent distress HEENT: Atraumatic, PERRLA, Mucous membr. moist/pink, EOMI, Sclerae nonicteric Neck: Supple, 2+ carotid pulse no bruit, No LAD, Without JVD or thyroid abnormality Respiratory: Diminished, Crackles/rales (scattered bilateral crackles) Cardiovascular: Regular rate/rhythm, Normal S1 S2 Gastrointestinal: Normal bowel sounds, No tenderness Musculoskeletal: No tenderness Integumentary: No rashes Neurological: Normal speech, Normal strength at 5/5 x4 extr, Normal tone, Normal affect Lymphatics: No axilla or inguinal lymphadenopathy - Studies Laboratory Data (last 24 hrs) 11/28/18 21:10: Sodium 140, Potassium 3.2 L, BUN 9, Creatinine 1.22, Glucose 126 H 11/28/18 21:10: WBC 13.5 H D, Hgb 15.6, Hct 46.0, Plt Count 219 Microbiology Data (last 24 hrs): 11/28/18 21:10 Nasopharnyx Influenza Type A Antigen Screen - Final 11/28/18 21:10 Nasopharnyx Influenza Type B Antigen Screen - Final Assessment and Plan - Problems (Diagnosis) (1) Pneumonia Current Visit: Yes Status: Acute Qualifiers: Pneumonia type: due to unspecified organism Laterality: bilateral Lung location: unspecified part of lung Qualified Code(s): J18.9 - Pneumonia, unspecified organism (2) Tobacco abuse Current Visit: Yes Status: Acute (3) HTN (hypertension) Current Visit: Yes Status: Acute Qualifiers: Hypertension type: essential hypertension Qualified Code(s): I10 - Essential (primary) hypertension (4) Hypokalemia Current Visit: Yes Status: Acute - Plan The patient will be admitted to the hospital due to bilateral pulmonary infiltrate, differential diagnosis is broad, including infectious (including atypical pneumonia), inflammatory, less likely malignancy. Will order HIV test, lactate, procalcitonin, ESR, C-RP, start empiric antibiotic treatment, consult Dr Jaime. - Advance Directives Does patient have a Living Will: No Does patient have a Durable POA for Healthcare: No - Code Status/Comfort Care Code Status Assessed: Yes Code Status: Full Code
[2018-11-29] MEDS ORDERED: IPRATROPIUM BROM 0.5MG/2.5ML NEB PRN (00:32)
[2018-11-29] MEDS ORDERED: ALBUTEROL 2.5 MG/3 ML NEB SOL NEB PRN (00:32)
[2018-11-29] MEDS ORDERED: Levofloxacin 750mg IV 750 MG/150 ML BAG IV SCH ×3 (00:32→23:00)
[2018-11-29] MEDS ORDERED: ONDANSETRON 4 MG/2 ML VIAL IV PRN (00:32)
[2018-11-29] MEDS ORDERED: AZITHROMYCIN IV 500 MG in NA CHLORIDE 0.9% 250 ML IVPB SCH ×2 (01:00→21:00)
[2018-11-29] MEDS: NA CHLORIDE 0.9% 1,000 ML IV SCH ×2 (01:08→11:17)
[2018-11-29 02:29] VITALS: BMI 38.0
[2018-11-29] MEDS ORDERED: AZITHROMYCIN 500 MG INJ IVPB ONE (02:41)
[2018-11-29] MEDS ORDERED: NA CHLORIDE 0.9% 250 ML ONE (02:52)
[2018-11-29] MEDS ORDERED: ACETAMINOPHEN 500 MG TAB PO PRN (04:24)
[2018-11-29] MEDS ORDERED: guaiFENesin 100 MG/5 ML UCUP PO PRN (04:24)
[2018-11-29 06:10] LABS: Absolute Lymphocytes (CBC) 5.1 K/uL (0.7-4.9); Absolute Monocytes 2.3 K/uL (0.1-1.3); Absolute Neutrophil 6.9 K/uL (1.8-8.0); Hematocrit 42.5 % (39.6-49.0); Lymphocytes % 35.4 % (15.3-44.8); MPV 9.1 fL (7.6-11.3); Monocytes % 15.8 % (3.3-12.3); RBC Red Blood Cell Count 4.98 M/uL (4.33-5.43)
[2018-11-29 06:22] LABS: ALT/SGPT 48 U/L (12-78); AST/SGOT 31 U/L (15-37); Albumin 3.3 g/dL (3.4-5.0); Alkaline Phosphatase 68 U/L (45-117); BUN Blood Urea Nitrogen 8 mg/dL (7-18); Bicarbonate 25 mmol/L (21-32); Bilirubin Total 0.5 mg/dL (0.2-1.0); Glucose Level 107 mg/dL (74-106); Potassium 3.8 mmol/L (3.5-5.1); Protein, Total 8.1 g/dL (6.4-8.2); Sodium Level 139 mmol/L (136-145)
[2018-11-29] MEDS ORDERED: KCL 20 MEQ/100 mL IVPB 20 MEQ/100 ML BAG IV SCH (08:00)
[2018-11-29] MEDS ORDERED: ALBUTEROL INHALER 60 PUFF/8 GM IH ONE (08:16)
[2018-11-29] MEDS ORDERED: POTASSIUM CL SA 10 MEQ TAB PO ONE (10:18)
--- NOTE | 2018-11-29 12:16 | RAD REPORT ---
EXAM DESCRIPTION: CT - Chest For Pe Angio - 11/28/2018 10:21 pm CLINICAL HISTORY: 23 years Male Chest pain; Dyspnea TECHNIQUE: Contiguous axial images obtained through the chest were obtained from the thoracic inlet to the level of the upper abdomen during the pulmonary arterial phase of intravenous contrast adminis tration. Coronal and bilateral oblique coronal reformatted images provided. This CT exam was performed according to our departmental dose-optimization program, which includes on e or more of the following dose reduction techniques: automated exposure control, adjustment of the m A and/or kV according to patient size, and/or use of iterative reconstruction technique. COMPARISON: No prior exams provided for comparison. FINDINGS: There is no definite pulmonary embolus. The thoracic aorta is normal without aneurysm or dissection. The heart is normal in size without katarzyna cardial effusion. There are somewhat rounded areas of sub-solid increased attenuation scattered throughout both lungs, measuring up to 3 cm in the left lower lobe. It is unclear if some of these lesions are partially cav itated. No pleural effusion or pneumothorax. Mild bilateral hilar and subcarinal lymphadenopathy with out calcification. Bilateral gynecomastia. No visualized acute upper abdominal or osseous abnormality. IMPRESSION: No definite pulmonary embolus. Somewhat rounded areas of semisolid increased attenuation scattered throughout both lungs measuring u p to 3 cm. There is associated noncalcified bilateral hilar and subcarinal lymphadenopathy. These fin dings could reflect metastatic disease, atypical infection, and atypical inflammation. Pulmonology ev aluation recommended. Electronically signed by: Connie Tang MD 11/28/2018 10:33 PM CDT Due to temporary technical issues with the PACS/Fluency reporting system, reports are being signed by the in house radiologist as a courtesy to ensure prompt reporting. The interpreting radiologist is f ully responsible for the content of the report.
--- NOTE | 2018-11-29 12:51 | EKG ---
Test Date: 2018-11-28 Test Time: 20:37:25 Maintenance Trainer: LATANYA MEASUREMENT RESULTS: Intervals: Rate: 133 AR: 154 QRSD: 80 QT: 282 QTc: 419 Lindsay: P: 65 AR: 154 QRS: 64 T: 17 INTERPRETIVE STATEMENTS: Sinus tachycardia Otherwise normal ECG Compared to ECG 11/25/2018 15:56:02 No significant changes Electronically Signed On 11-29-18 12:50:25 CDT by Arley Scott
--- NOTE | 2018-11-29 12:55 | P.CNS ---
Date of Consult: 11/29/18 Chief Complaint: Chest pain History of Present Illness: Patient is 23 years of age started complaining of chest pain for the past 4 or 5 days associated with some shortness of breath he came to the emergency room is discharged came back again and was found to have bilateral pulmonary infiltrate with some mediastinal adenopathy patient smokes 2-3 packs a day never had any cardiopulmonary problems also been complaining of some vomiting severe coughing spells denies any fever or weight loss has no underlying comorbid problems patient is employed loss of appetite Allergies Bees Allergy (Uncoded 11/29/18 01:31) Unknown Home Medications: NK [No Home Meds] 11/29/18 - Past Medical/Surgical History Diabetic: No -: HTN - Family History Mother History Unknown: Yes Father History Unknown: Yes - Social History Smoking Status: Current every day smoker Alcohol use: Yes CD- Drugs: Yes Caffeine use: Yes Place of Residence: Home Review of Systems General: Weakness, As per HPI Respiratory: Cough, Shortness of Breath Physical Examination Temp Pulse Resp BP Pulse Ox 97.4 F 89 28 H 148/86 H 99 11/29/18 12:00 11/29/18 12:00 11/29/18 12:00 11/29/18 12:00 11/29/18 12:00 General: Alert, Oriented x3 HEENT: Atraumatic Neck: Supple Respiratory: Clear to auscultation bilaterally, Normal air movement Cardiovascular: No edema, Regular rate/rhythm Laboratory Data (last 24 hrs) 11/28/18 21:10: Sodium 140, Potassium 3.2 L, BUN 9, Creatinine 1.22, Glucose 126 H 11/28/18 21:10: WBC 13.5 H D, Hgb 15.6, Hct 46.0, Plt Count 219 - Problems (1) Abnormal chest x-ray Current Visit: Yes Status: Acute Plan: Patient is 23 years of age admitted with chest pain and bilateral pulmonary infiltrates these appear vascular of ordered 2D echo with Doppler to evaluate for possible endocarditis official report from Radiology is pending complains of severe cough I have added bronchodilators p.o. antibiotics should suffice patient's white count is elevated the probably going to need a biopsy vital signs are stable oxygenation satisfactory doubt fungus out tuberculosis possibility of malignancy also recommend a fine-needle aspiration biopsy of the peripheral infiltrate sent off for fungus AFB cytology and regular cultures
[2018-11-29] MEDS: ARFORMOTEROL TARTRATE 15 MCG/2 ML VIAL.NEB NEB SCH ×2 (13:26→20:10)
[2018-11-29] MEDS: PROMETHAZINE-DM 5 ML OSYR PO SCH ×2 (13:58→17:48)
[2018-11-29 15:12] LABS: Protime INR 1.43
--- NOTE | 2018-11-29 15:34 | PN ---
Date of Progress Note: 11/29/2018 Subjective: The patient was seen and examined, chart reviewed and case discussed with RN. The patie nt is still having some cough with sputum production. Also developed diarrhea, on isolation, to rule out C. diff. Medications: List reviewed. Objective: Vital Signs: Temperature 98.5, heart rate 89, blood pressure 138/79, respirations 28, O2 96% on room air. General: Awake, alert, oriented x3, obese male, not in any acute distress. CV: S1, S2. Regular rate and rhythm. Peripheral pulses present. No murmurs. Respiratory: Diminished breath sounds. Rhonchi present. No wheezing or stridor. Gastrointestinal: Abdomen is soft, nontender, nondistended. Positive bowel sounds. No guarding or rigidity. Extremities: No clubbing, cyanosis, or edema. Neurologic: Cranial nerves 2 through 12 intact grossly. No focal neurological deficits. SKIN: No rashes. Normal skin turgor. Laboratory Data: Sodium 139, potassium 3.8, chloride 106, CO2 25, BUN 8, creatinine 0.97, glucose 10 7. Procalcitonin is 0.68. WBC 14.5, H and H 14.5 and 42.5, neutrophils 47.8%. Blood cultures pendi ng. Influenza screen is negative. Assessment And Plan: A 23-year-old male with: 1.Pneumonia, bilateral. Continue intravenous antibiotics. White blood cell count is trending up. The patient continues to have symptoms including cough, shortness of breath. We will follow up on cu ltures. 2.A 3 cm lesion and associated bilateral hilar and subcarinal lymphadenopathy, unclear etiology, may be sarcoidosis, atypical infection, cyst or possible malignancy, however less likely. Workup is und erway. Pulmonology has been consulted. Appreciate Dr. Jaime's input. 3.Nicotine dependence with cigarette smoking. The patient is smoking since the age of 10. The patie nt has been counseled. 4.Essential hypertension, stable. 5.Hypokalemia, replace and monitor. 6.Obesity, body mass index 38.1. SA/MODL Voice ID: [id number] Report ID: [id number]
[2018-11-30] MEDS: PROMETHAZINE-DM 5 ML OSYR PO SCH ×4 (00:10→17:21)
[2018-11-30 07:36] LABS: Absolute Lymphocytes (CBC) 3.2 K/uL (0.7-4.9); Absolute Monocytes 1.4 K/uL (0.1-1.3); Basophils % 1.3 % (0-1.3); Eosinophils % 1.6 % (0-4.4); Hematocrit 45.7 % (39.6-49.0)
[2018-11-30 07:50] LABS: ALT/SGPT 50 U/L (12-78); AST/SGOT 33 U/L (15-37); Albumin 3.2 g/dL (3.4-5.0); Alkaline Phosphatase 67 U/L (45-117); BUN Blood Urea Nitrogen 6 mg/dL (7-18); Bicarbonate 24 mmol/L (21-32); Bilirubin Total 0.5 mg/dL (0.2-1.0); Glucose Level 121 mg/dL (74-106); Potassium 3.9 mmol/L (3.5-5.1); Protein, Total 8.1 g/dL (6.4-8.2); Sodium Level 141 mmol/L (136-145)
[2018-11-30] MEDS: ARFORMOTEROL TARTRATE 15 MCG/2 ML VIAL.NEB NEB SCH (08:10)
[2018-11-30 08:37] VITALS: O2SAT 97
--- NOTE | 2018-11-30 08:55 | P.PN ---
Subjective Date of Service: 11/30/18 Chief Complaint: Cough Patient states that his still coughing no change white count has declined significantly Review of Systems Respiratory: Cough, Shortness of Breath Physical Examination - Vital Signs Temperature: 97.2 F Blood Pressure: 171/84 Pulse: 87 Respirations: 28 Pulse Ox (%): 97 - Physical Exam General: Alert, In no apparent distress, Oriented x3 Respiratory: Clear to auscultation bilaterally Cardiovascular: No edema, Regular rate/rhythm Assessment & Plan - Problems (Diagnosis) (1) Abnormal chest x-ray Current Visit: Yes Status: Acute Plan: Patient admitted with cough shortness of breath bilateral pulmonary infiltrates are strongly suspect that it bilateral pneumonia in addition he does have some mediastinal adenopathy continue with antibiotics I have added some steroids echocardiogram with Doppler is pending oxygenation satisfactory blood pressure elevated history of hypertension possible discharge today follow up with me in 1 week he may need outpatient bronchoscopy discussed with the patient informed that he needs to quit smoking diffuse mediastinal adenopathy persist the patient may need a mediastinoscopy and biopsy I have added Dulera possible discharge on prednisone 10 mg twice a day patient to take home Dulera from the hospital the also need treatment for his hypertension I have added Maxzide
[2018-11-30] MEDS ORDERED: DULERA 200/5 (MOMETASONE/FORMOTEROL) INHALER IH SCH (09:00)
[2018-11-30] MEDS ORDERED: predniSONE 20 MG TAB PO SCH (09:00)
[2018-11-30] MEDS ORDERED: MAXZIDE (HCTZ 25/TRIAMTERENE 37.5MG) TAB PO SCH (09:00)
[2018-11-30] MEDS ORDERED: levoFLOXacin 750 MG TAB PO SCH (09:00)
--- NOTE | 2018-11-30 09:01 | RAD REPORT ---
EXAM DESCRIPTION: RAD - Chest Pa And Lat (2 Views) - 11/30/2018 8:43 am CLINICAL HISTORY: pneumonia Chest pain. COMPARISON: Chest Single View dated 11/25/2018; Chest Pa And Lat (2 Views) dated 05/26/2018; Abdomen Acute Series dated 12/02/2017; Chest Single View dated 09/20/2016 FINDINGS: Vague areas nodularity are seen both lungs, nonspecific and quite subtle in appearance. No focal consolidation typical of bacterial pneumonia. The heart is normal in size. No displaced fractu res.
[2018-11-30] MEDS ORDERED: LOSARTAN POTASSIUM 50 MG TABLET PO SCH (16:56)
--- NOTE | 2018-11-30 16:56 | P.DS ---
Admission Date: 11/28/18 Discharge Date: 11/30/18 Disposition: ROUTINE DISCHARGE Discharge Condition: GOOD Reason for Admission: Cough Consultations: Pulmonology Brief History of Present Illness: Mr Vega is a 23 years old male with history of HTN, no medicated, who stat about 4 days ago with chest pain. He came to ED for evaluation, work up including CXR was negative and was discharged home. Later he start having productive cough, whitish secretion, no blood in his sputum. He also has had progressive SOB and sweating. He did not had fever or chills. No weight loss history. Lab work remarkable for leukocytosis 13.5K, D-Dimer 1008. Also potassium was low 3.2. CTA chest shows no PE, however, there are rounded areas bilaterally, measuring up to 3 cm, associated with bilateral hilar and subcarinal lymphadenopathy. He denied muscular or joint pain. Hospital Course: Patient was admitted for bilateral pulmonary infiltrate. He was started on IV antibiotics, pulmonology was consulted. His WBC count initially is elevated, trended up and returned to normal range. His symptoms improved as well. His cultures remained negative. Of 3 cm lesion and associated bilateral hilar and subcarinal lymphadenopathy were instantly noted on CT scan. The etiology is unclear and this could be related to sarcoidosis, atypical infection, cyst or possible malignancy which is less likely. Pulmonology was consulted. Patient was scheduled for a CT- guided biopsy, though was canceled. As patient does have evidence of infection , patient will complete a course of oral antibiotics and will follow up as an outpatient in 1 week for possible biopsy at that time. An echocardiogram was done, to evaluate for any evidence of endocarditis or valve involvement. He will follow up with echo results with pulmonology. Patient was counseled and educated extensively on cigarette smoking cessation. Patient not interested at this time. He was noted to go down multiple times throughout the stay to go smoke. His blood pressure was elevated and patient was started on Maxzide. His blood pressure did respond, continued to be elevated. He was also started on losartan. His blood pressure responded well. He was discharged on with these medications. He otherwise remained stable throughout the stay. He will be discharged on oral antibiotics, blood pressure medication. He will follow up with pulmonology in 1 week. Prior to discharge, he was alert oriented x3, in no acute distress and hemodynamically stable. History room plan/diagnoses were explained to him. All questions were answered , he verbalized understanding. He was then discharged home in a safe and stable manner. Vital Signs/Physical Exam: Temp Pulse Resp BP Pulse Ox 97.8 F 82 28 H 164/92 H 99 11/30/18 12:00 11/30/18 12:00 11/30/18 12:00 11/30/18 12:00 11/30/18 12:00 General: Alert, In no apparent distress, Oriented x3 HEENT: Atraumatic, PERRLA, EOMI Neck: Supple, JVD not distended Respiratory: Clear to auscultation bilaterally, Normal air movement Cardiovascular: Regular rate/rhythm, Normal S1 S2 Gastrointestinal: Normal bowel sounds, No tenderness Musculoskeletal: No tenderness Integumentary: No rashes Neurological: Normal speech, Normal tone, Normal affect Lymphatics: No axilla or inguinal lymphadenopathy Laboratory Data at Discharge: WBC 7.9 K/uL (4.3-10.9) D 11/30/18 07:25 Hgb 15.3 g/dL (13.6-17.9) 11/30/18 07:25 Hct 45.7 % (39.6-49.0) 11/30/18 07:25 Plt Count 215 K/uL (152-406) 11/30/18 07:25 PT 16.6 SECONDS (9.5-12.5) H 11/29/18 14:00 INR 1.43 11/29/18 14:00 Sodium 141 mmol/L (136-145) 11/30/18 07:25 Potassium 3.9 mmol/L (3.5-5.1) 11/30/18 07:25 BUN 6 mg/dL (7-18) L 11/30/18 07:25 Creatinine 0.86 mg/dL (0.55-1.3) 11/30/18 07:25 Glucose 121 mg/dL (74-106) H 11/30/18 07:25 Total Bilirubin 0.5 mg/dL (0.2-1.0) 11/30/18 07:25 AST 33 U/L (15-37) 11/30/18 07:25 ALT 50 U/L (12-78) 11/30/18 07:25 Alkaline Phosphatase 67 U/L (45-117) 11/30/18 07:25 Home Medications: Mometasone/Formoterol [Dulera 200 Mcg/5 Mcg Inhaler] 2 puff IH BID inhaler Triamterene/Hctz [Maxzide 37.5 mg-25 mg Tablet*] 1 tab PO DAILY #30 tablet 11/30 levoFLOXacin [Levaquin*] 750 mg PO DAILY #7 tab 11/30/18 predniSONE [Prednisone*] 20 mg PO BID #14 tab 11/30/18 New Medications: levoFLOXacin [Levaquin*] 750 mg PO DAILY #7 tab predniSONE [Prednisone*] 20 mg PO BID #14 tab Triamterene/Hctz [Maxzide 37.5 mg-25 mg Tablet*] 1 tab PO DAILY #30 tablet Patient Discharge Instructions: Please follow up with the primary care physician in 2-3 days. Please follow up with pulmonology in 1 week. Information provided to you. New medications: Levaquin (an antibiotic for your pneumonia), prednisone (steroid), Maxzide (medication for your high blood pressure), Dulera (inhaler). Please return to the emergency room for worsening symptoms. Diet: AHA Activity: Ad agustin Followup: Fred Jaime MD [ACTIVE - CAN ADMIT] - 1 Week (call to schedule appointment) LILIYA PETERSON [OUTSIDE PHYSICIAN] - (call to schedule appointment) Time spent managing pt's care (in minutes): 55
[2018-11-30 17:00] VITALS: BP 189/95; TEMP 97.6
--- NOTE | 2018-12-01 08:06 | ECHO ---
HEIGHT: 6 ft 0 in WEIGHT: 280 lb 11.2 oz DATE OF STUDY: 11/30/[address]: Fred Jaime MD 2-DIMENSIONAL: YES M.MODE: YES DOPPLER: YES COLOR FLOW: YES TDS: NO PORTABLE: NO DEFINITY: NO BUBBLE STUDY: NO DIAGNOSIS: RULE OUT ENDOCARDITIS CARDIAC HISTORY: CATHERIZATION: NO SURGERY: NO PROSTHETIC VALVE: NO PACEMAKER: NO MEASUREMENTS (cm) DIASTOLIC (NORMALS) SYSTOLIC (NORMALS) IVSd 1.0 (0.6-1.2) LA Diam 3.5 (1.9-4.0) LVEF 61% LVIDd 4.9 (3.5-5.7) LVIDs 3.3 (2.0-3.5) %FS 32% LVPWd 1.2 (0.6-1.2) Ao Diam 2.5 (2.0-3.7) 2 DIMENSIONAL ASSESSMENT: RIGHT ATRIUM: NORMAL LEFT ATRIUM: NORMAL RIGHT VENTRICLE: NORMAL LEFT VENTRICLE: NORMAL TRICUSPID VALVE: NORMAL MITRAL VALVE: NORMAL PULMONIC VALVE: NORMAL AORTIC VALVE: NORMAL PERICARDIAL EFFUSION: NONE AORTIC ROOT: NORMAL LEFT VENTRICULAR WALL MOTION: NORMAL DOPPLER/COLOR FLOW: NORMAL COMMENTS: NORMAL 2D ECHOCARDIOGRAM WITH DOPPLER. NO VEGETATION IS SEEN. THIS DOES NOT RULE OUT ENDOCARDITIS. TECHNOLOGIST: Mikala LINDSEY
[2018-12-02 15:02] LABS: HIV AG/AB 4TH GEN Non-reactive (Non-reactive)
== END 2018-11-30 18:53 | disposition home or self-care (01) | DRG 195 ==
LOC: ER 20:34 → ERHOLD 23:46 → 4TH 11-29 00:22
PROVIDERS: ADMIT Internal Medicine; ATTEND Internal Medicine
DX: J18.9 Pneumonia, unspecified organism (principal); I10 Essential (primary) hypertension; R59.0 Localized enlarged lymph nodes; R19.7 Diarrhea, unspecified; E66.9 Obesity, unspecified; Z68.38 Body mass index [BMI] 38.0-38.9, adult; E87.6 Hypokalemia; Z91.030 Bee allergy status; F17.210 Nicotine dependence, cigarettes, uncomplicated
CPT/HCPCS: 36415; 71046; 71275; 80048; 80053; 83605; 84145; 85025; 85379; 85610; 85652; 86140; 87040; 87389; 87493; 87804; 93005; 93306; 94640; 94760; 96365; 96367; 96374; 96375; 99285; J0456; J7030; J7512; J7605; J7606; Q9967

== ENCOUNTER 2019-05-04 17:23 | Emergency (ER) | payer BC ==
[2019-05-04] MEDS ORDERED: KETOROLAC 30 MG/ML INJ ONE (18:08)
[2019-05-04] MEDS ORDERED: HYDROCODONE/APAP 10/325 TAB ONE (18:08)
--- NOTE | 2019-05-04 18:26 | RAD REPORT ---
EXAM DESCRIPTION: Ribs Right - 05/04/2019 6:20 pm CLINICAL HISTORY: Fall, rib pain COMPARISON: None. FINDINGS: No displaced rib fracture is evident. No aggressive rib lesion. No underlying pneumothorax, effusion, infiltrate or pulmonary contusion. IMPRESSION: Negative right rib series.
--- NOTE | 2019-05-04 19:10 | ER ---
Nurse's Notes [facility] Name: Do Vega Age: 23 yrs Sex: Male : 1995 Arrival Date: 05/04/2019 Time: 17:25 Bed 17 Private MD: Diagnosis: Rib Contusion Presentation: 05/04 17:36 Presenting complaint: Low back and right sided rib cage pain after horseplay with hb friend last night. Transition of care: patient was not received from another setting of care. Onset of symptoms was May 03, 2019. Risk Assessment: Do you want to hurt yourself or someone else? Patient reports no desire to harm self or others. Care prior to arrival: None. 17:36 Method Of Arrival: Ambulatory hb 17:36 Acuity: PRESTON 4 hb 18:04 Initial Sepsis Screen: Does the patient meet any 2 criteria? No. Patient's initial tw2 sepsis screen is negative. Does the patient have a suspected source of infection? No. Patient's initial sepsis screen is negative. Historical: - Allergies: 17:38 Bees; hb - Home Meds: 17:38 None [Active]; hb - PMHx: 17:38 Hypertension; hb - PSHx: 17:38 None; hb - Immunization history:: Adult Immunizations up to date. - Social history:: Smoking status: Patient uses tobacco products, smokes one-half pack cigarettes per day. - Ebola Screening: : No symptoms or risks identified at this time. Screenin:04 Abuse screen: Denies threats or abuse. Nutritional screening: No deficits noted. tw2 Tuberculosis screening: No symptoms or risk factors identified. Fall Risk None identified. Assessment: 18:05 General: Appears in no apparent distress. Behavior is calm, cooperative, appropriate tw2 for age. Pain: Complains of pain in rib and back pain. Neuro: Level of Consciousness is awake, alert, obeys commands, Oriented to person, place, time, situation. Cardiovascular: Patient's skin is warm and dry. Respiratory: Airway is patent Respiratory effort is even, unlabored, Respiratory pattern is regular, symmetrical. GI: No signs and/or symptoms were reported involving the gastrointestinal system. : No signs and/or symptoms were reported regarding the genitourinary system. EENT: No signs and/or symptoms were reported regarding the EENT system. Derm: No signs and/or symptoms reported regarding the dermatologic system. Musculoskeletal: Range of motion: intact in all extremities. 18:57 Reassessment: Patient appears in no apparent distress at this time. No changes from tw2 previously documented assessment. Patient and/or family updated on plan of care and expected duration. Pain level reassessed. Patient is alert, oriented x 3, equal unlabored respirations, skin warm/dry/pink. Patient states symptoms have not improved. Vital Signs: 17:37 BP 171 / 119; Pulse 95; Resp 16; Temp 98.8; Pulse Ox 99% on R/A; Weight 117.93 kg; hb Height 6 ft. (182.88 cm); Pain 9/10; 18:57 BP 146 / 106; Pulse 90; Resp 17; Pulse Ox 99% on R/A; tw2 17:37 Body Mass Index 35.26 (117.93 kg, 182.88 cm) hb ED Course: 17:25 Patient arrived in ED. as 17:37 Triage completed. 17:40 Bed in low position. Call light in reach. tw2 17:42 Omkar Che PA is PHCP. [facility] 17:42 Sav Johnson MD is Attending Physician. m 18:03 Oksana Smith RN is Primary Nurse. tw2 18:04 Arm band placed on. tw2 18:20 Ribs Right XRAY In Process Unspecified. EDMS 19:00 Report given to JADON Martins. tw2 19:12 No provider procedures requiring assistance completed. Patient did not have IV access wh during this emergency room visit. Administered Medications: 18:23 Drug: Webber 10 mg-325 mg 1 tabs Route: PO; tw2 18:55 Follow up: Response: No adverse reaction; Pain is unchanged, physician notified; RASS: tw2 Alert and Calm (0) 18:23 Drug: Ketorolac 30 mg Route: IM; Site: left deltoid; tw2 18:56 Follow up: Response: No adverse reaction tw2 Outcome: 19:09 Discharge ordered by . [facility] 19:12 Discharged to home ambulatory, with family. 19:12 Condition: stable 19:12 Discharge instructions given to patient, Instructed on discharge instructions, follow up and referral plans. medication usage, POC Rib contussion and IS use Demonstrated understanding of instructions, follow-up care, medications, POC Prescriptions given X 1. 19:13 Patient left the ED. Signatures: Dispatcher [employer] EDMS Omkar Che PA PA jmm Martinez, Amelia as Baxter, Heather, RN RN Oksana Smith RN RN tw2 Lakshmi Sheth
--- NOTE | 2019-05-04 19:10 | EDPHYS ---
Physician Documentation [facility] Name: Do Vega Age: 23 yrs Sex: Male : 1995 Arrival Date: 05/04/2019 Time: 17:25 Bed 17 Private MD: ED Physician Sav Johnson HPI: 05/04 17:53 This 23 yrs old Black Male presents to ER via Ambulatory with complaints of Rib Injury, jmm Back Pain. 17:53 The patient or guardian reports chest pain that is located primarily in the anterior [facility] chest wall. Onset: The symptoms/episode began/occurred acutely, yesterday. The pain does not radiate. The chest pain is described as sharp. This is a 23 year old male with a history of HTN that presents to the ED with complaints of right sided chest pain which occurred after horse playing with a friend. Patient states the friend sat on his chest. Patient states he awoke later with pain to the right side of his chest. . Historical: - Allergies: 17:38 Bees; hb - Home Meds: 17:38 None [Active]; hb - PMHx: 17:38 Hypertension; hb - PSHx: 17:38 None; hb - Immunization history:: Adult Immunizations up to date. - Social history:: Smoking status: Patient uses tobacco products, smokes one-half pack cigarettes per day. - Ebola Screening: : No symptoms or risks identified at this time. ROS: 17:53 Constitutional: Negative for fever, chills, and weight loss. jmm 17:53 Respiratory: Negative for shortness of breath, cough, wheezing, and pleuritic chest pain, Abdomen/GI: Negative for abdominal pain, nausea, vomiting, diarrhea, and constipation. 17:53 Cardiovascular: Positive for chest pain, with movement. 17:53 Back: Positive for pain with movement. 17:53 All other systems are negative. Exam: 17:53 Constitutional: This is a well developed, well nourished patient who is awake, alert, jmm and in no acute distress. Head/Face: atraumatic. Eyes: EOMI, no conjunctival erythema appreciated ENT: Moist Mucus Membranes Neck: Trachea midline, Supple Cardiovascular: Regular rate and rhythm. No edema appreciated 17:53 Respiratory: Normal respirations, no respiratory distress appreciated 17:53 Chest/axilla: right anterolateral chest pain on palpation, no obvious deformity appreciated, no step offs appreciated. 17:53 Back: no midline tenderness, mild right lower lumbar tenderness on palpation, .. 17:53 Musculoskeletal/extremity: ROM: intact in all extremities. 17:53 Skin: Appearance: Color: normal in color. 17:53 Neuro: Orientation: is normal, Mentation: is normal, Memory: is normal. 17:53 Psych: Behavior/mood is pleasant, cooperative. Vital Signs: 17:37 BP 171 / 119; Pulse 95; Resp 16; Temp 98.8; Pulse Ox 99% on R/A; Weight 117.93 kg; hb Height 6 ft. (182.88 cm); Pain 9/10; 18:57 BP 146 / 106; Pulse 90; Resp 17; Pulse Ox 99% on R/A; tw2 17:37 Body Mass Index 35.26 (117.93 kg, 182.88 cm) hb MDM: 17:53 Patient medically screened. [facility] 19:08 Data reviewed: vital signs, nurses notes. Counseling: I had a detailed discussion with [facility] the patient and/or guardian regarding: the historical points, exam findings, and any diagnostic results supporting the discharge/admit diagnosis, the need for outpatient follow up, to return to the emergency department if symptoms worsen or persist or if there are any questions or concerns that arise at home. 19:08 ED course: IS given with strict return precautions. Patient understood and agrees with [facility] the plan of care. . 05/04 18:03 Order name: Ribs Right XRAY; Complete Time: 18:31 [facility] 05/04 18:58 Order name: INCENTIVE SPIROMETRY [facility] Administered Medications: 18:23 Drug: [place]umet 10 mg-325 mg 1 tabs Route: PO; tw2 18:55 Follow up: Response: No adverse reaction; Pain is unchanged, physician notified; RASS: tw2 Alert and Calm (0) 18:23 Drug: Ketorolac 30 mg Route: IM; Site: left deltoid; tw2 18:56 Follow up: Response: No adverse reaction tw2 Disposition: 05/04/19 19:09 Discharged to Home. Impression: Rib Contusion. - Condition is Stable. - Discharge Instructions: Rib Contusion. - Prescriptions for orphenadrine citrate 100 mg Oral Tablet Sustained Release - take 1 tablet by ORAL route 2 times per day As needed; 20 tablet. - Medication Reconciliation Form, Thank You Letter, Antibiotic Education, Prescription Opioid Use form. - Follow up: Private Physician; When: 2 - 3 days; Reason: Recheck today's complaints, Continuance of care, Re-evaluation by your physician. Addendum: 05/06/2019 15:36 Co-signature as Attending Physician, Sav Johnson MD I agree with the assessment and t w4 plan of care. Signatures: Dispatcher [employer] EDMS Omkar Che PA PA jmm Baxter, Heather, RN RN Oksana Smith RN RN tw2 Lakshmi Sheth Terrence, MD MD tw4 Corrections: (The following items were deleted from the chart) 05/04 19:13 19:09 05/04/2019 19:09 Discharged to Home. Impression: Rib Contusion. Condition is wh Stable. Forms are Medication Reconciliation Form, Thank You Letter, Antibiotic Education, Prescription Opioid Use. Follow up: Private Physician; When: 2 - 3 days; Reason: Recheck today's complaints, Continuance of care, Re-evaluation by your physician. reji
[2019-05-04 19:28] VITALS: TEMP 98.8; O2SAT 99
[2019-05-04 19:29] VITALS: BP 146/106
== END 2019-05-04 19:13 | disposition home or self-care (01) ==
LOC: ER 17:23
DX: S20.211A Contusion of right front wall of thorax, initial encounter (principal); F17.210 Nicotine dependence, cigarettes, uncomplicated; Y93.83 Activity, rough housing and horseplay; Y93.89 Activity, other specified; Y92.9 Unspecified place or not applicable
CPT/HCPCS: 96372; 99283

== ENCOUNTER 2019-07-26 18:10 | Emergency (ER) | payer BC, SELFPAY ==
[2019-07-26] MEDS ORDERED: IBUPROFEN 400 MG TAB ONE (18:31)
--- NOTE | 2019-07-26 18:51 | EDPHYS ---
Physician Documentation [facility] Name: Do Vega Age: 23 yrs Sex: Male : 1995 Arrival Date: 07/26/2019 Time: 18:12 Bed 23 Private MD: Linus Dowling HPI: 07/26 18:26 This 23 yrs old Black Male presents to ER via Ambulatory with complaints of Foot Pain. hattie 18:26 The patient presents with decreased range of motion, pain, tenderness. The complaints hattie affect the right foot, medial aspect of right toes, right first toe and Right first toenail. Context: The problem was sustained at work, resulted from a heavy object falling, a mis-step by the patient. Onset: The symptoms/episode began/occurred 2 day(s) ago. Modifying factors: The symptoms are alleviated by. Associated signs and symptoms: The patient has no apparent associated signs or symptoms. The patient has not experienced similar symptoms in the past. Historical: - Allergies: 18:15 Bees; hb - Home Meds: 18:15 None [Active]; hb - PMHx: 18:15 Hypertension; hb - PSHx: 18:15 None; hb - Immunization history:: Adult Immunizations up to date. - Social history:: Smoking status: Patient uses tobacco products, smokes one-half pack cigarettes per day. - Ebola Screening: : No symptoms or risks identified at this time. - Family history:: not pertinent. ROS: 18:26 Constitutional: Negative for fever, chills, and weight loss, Eyes: Negative for injury, hattie pain, redness, and discharge, ENT: Negative for injury, pain, and discharge, Neck: Negative for injury, pain, and swelling, Cardiovascular: Negative for chest pain, palpitations, and edema, Respiratory: Negative for shortness of breath, cough, wheezing, and pleuritic chest pain, Abdomen/GI: Negative for abdominal pain, nausea, vomiting, diarrhea, and constipation, Back: Negative for injury and pain, : Negative for injury, bleeding, discharge, and swelling, Skin: Negative for injury, rash, and discoloration, Neuro: Negative for headache, weakness, numbness, tingling, and seizure, Psych: Negative for depression, anxiety, suicide ideation, homicidal ideation, and hallucinations, Allergy/Immunology: Negative for hives, rash, and allergies, Endocrine: Negative for neck swelling, polydipsia, polyuria, polyphagia, and marked weight changes, Hematologic/Lymphatic: Negative for swollen nodes, abnormal bleeding, and unusual bruising. 18:26 MS/extremity: Positive for injury or acute deformity, decreased range of motion, pain, swelling, of the medial aspect of right toes and right first toe. Exam: 18:26 Constitutional: This is a well developed, well nourished patient who is awake, alert, hattie and in no acute distress. Head/Face: Normocephalic, atraumatic. Eyes: Pupils equal round and reactive to light, extra-ocular motions intact. Lids and lashes normal. Conjunctiva and sclera are non-icteric and not injected. Cornea within normal limits. Periorbital areas with no swelling, redness, or edema. ENT: Nares patent. No nasal discharge, no septal abnormalities noted. Tympanic membranes are normal and external auditory canals are clear. Oropharynx with no redness, swelling, or masses, exudates, or evidence of obstruction, uvula midline. Mucous membranes moist. Neck: Trachea midline, no thyromegaly or masses palpated, and no cervical lymphadenopathy. Supple, full range of motion without nuchal rigidity, or vertebral point tenderness. No Meningismus. Chest/axilla: Normal chest wall appearance and motion. Nontender with no deformity. No lesions are appreciated. Cardiovascular: Regular rate and rhythm with a normal S1 and S2. No gallops, murmurs, or rubs. Normal PMI, no JVD. No pulse deficits. Respiratory: Lungs have equal breath sounds bilaterally, clear to auscultation and percussion. No rales, rhonchi or wheezes noted. No increased work of breathing, no retractions or nasal flaring. Abdomen/GI: Soft, non-tender, with normal bowel sounds. No distension or tympany. No guarding or rebound. No evidence of tenderness throughout. Back: No spinal tenderness. No costovertebral tenderness. Full range of motion. Skin: Warm, dry with normal turgor. Normal color with no rashes, no lesions, and no evidence of cellulitis. Neuro: Awake and alert, GCS 15, oriented to person, place, time, and situation. Cranial nerves II-XII grossly intact. Motor strength 5/5 in all extremities. Sensory grossly intact. Cerebellar exam normal. Normal gait. Psych: Awake, alert, with orientation to person, place and time. Behavior, mood, and affect are within normal limits. 18:26 Musculoskeletal/extremity: Extremities: noted in the medial aspect of right toes, right first toe and Right first toenail: decreased ROM, pain, swelling, tenderness. Vital Signs: 18:15 BP 182 / 105; Pulse 97; Resp 16; Temp 97.8; Pulse Ox 100% on R/A; Weight 117.93 kg; hb Height 5 ft. 11 in. (180.34 cm); Pain 8/10; 19:00 BP 156 / 85; Pulse 89; Resp 17 S; Pulse Ox 100% on R/A; ca1 18:15 Body Mass Index 36.26 (117.93 kg, 180.34 cm) hb MDM: 18:16 Patient medically screened. [facility] 18:29 Data reviewed: vital signs, nurses notes, radiologic studies, plain films. [facility] 07/26 18:26 Order name: Foot Right 3 View XRAY [facility] 07/26 18:51 Order name: Ice pack; Complete Time: 18:58 [facility] Administered Medications: 18:30 Drug: Motrin 800 mg Route: PO; ca1 18:53 Follow up: Response: No adverse reaction; Pain is decreased ca1 Disposition: 07/26/19 18:51 Discharged to Home. Impression: Pain in right foot. - Condition is Stable. - Discharge Instructions: Foot Pain. - Prescriptions for Ibuprofen 600 mg Oral Tablet - take 1 tablet by ORAL route every 6 hours As needed take with food; 30 tablet. Tylenol- Codeine #3 300-30 mg Oral Tablet - take 2 tablets by ORAL route every 6 hours As needed; 26 tablet. - Medication Reconciliation Form, Thank You Letter, Antibiotic Education, Prescription Opioid Use, Work release form form. - Follow up: Private Physician; When: 2 - 3 days; Reason: Recheck today's complaints, Continuance of care, Re-evaluation by your physician. Follow up: Dejon Yen; When: 2 - 3 days; Reason: Recheck today's complaints, Re-evaluation by your physician. - Problem is new. - Symptoms have improved. Signatures: Dispatcher [employer] Linus Burnham MD MD cha Baxter, Heather, RN RN Flavia Anna RN RN ca1 Corrections: (The following items were deleted from the chart) 19:08 18:51 07/26/2019 18:51 Discharged to Home. Impression: Pain in right foot. Condition is ca1 Stable. Discharge Instructions: Foot Pain. Prescriptions for Ibuprofen 600 mg Oral Tablet - take 1 tablet by ORAL route every 6 hours As needed take with food; 30 tablet, Tylenol-Codeine #3 300-30 mg Oral Tablet - take 2 tablets by ORAL route every 6 hours As needed; 26 tablet. and Forms are Medication Reconciliation Form, Thank You Letter, Antibiotic Education, Prescription Opioid Use. Follow up: Private Physician; When: 2 - 3 days; Reason: Recheck today's complaints, Continuance of care, Re-evaluation by your physician. Follow up: Dejon Yen; When: 2 - 3 days; Reason: Recheck today's complaints, Re-evaluation by your physician. Problem is new. Symptoms have improved. hattie
--- NOTE | 2019-07-26 18:51 | ER ---
Nurse's Notes [facility] Name: Do Vega Age: 23 yrs Sex: Male : 1995 Arrival Date: 07/26/2019 Time: 18:12 Bed 23 Private MD: Diagnosis: Pain in right foot Presentation: 07/26 18:13 Presenting complaint: Right great toe pain x 2 days. Transition of care: patient was hb not received from another setting of care. Onset of symptoms was July 26, 2019. Risk Assessment: Do you want to hurt yourself or someone else? Patient reports no desire to harm self or others. Initial Sepsis Screen: Does the patient meet any 2 criteria? No. Patient's initial sepsis screen is negative. Does the patient have a suspected source of infection? No. Patient's initial sepsis screen is negative. Care prior to arrival: None. 18:13 Method Of Arrival: Ambulatory hb 18:13 Acuity: PRESTON 4 hb Historical: - Allergies: 18:15 Bees; hb - Home Meds: 18:15 None [Active]; hb - PMHx: 18:15 Hypertension; hb - PSHx: 18:15 None; hb - Immunization history:: Adult Immunizations up to date. - Social history:: Smoking status: Patient uses tobacco products, smokes one-half pack cigarettes per day. - Ebola Screening: : No symptoms or risks identified at this time. - Family history:: not pertinent. Screenin:35 Abuse screen: Denies threats or abuse. Denies injuries from another. Nutritional ca1 screening: No deficits noted. Tuberculosis screening: No symptoms or risk factors identified. Fall Risk None identified. Assessment: 18:35 General: Appears in no apparent distress. comfortable, Behavior is calm, cooperative, ca1 appropriate for age. Pain: Complains of pain in right foot and right first toe and medial aspect of right toes Pain currently is 7 out of 10 on a pain scale. Neuro: Level of Consciousness is awake, alert, obeys commands, Oriented to person, place, time, situation, Appropriate for age. Derm: Skin is intact, is healthy with good turgor, Skin is pink, warm \T\ dry. Musculoskeletal: Circulation, motion, and sensation intact. Capillary refill < 3 seconds, Range of motion: intact in all extremities. 19:07 Reassessment: Patient appears in no apparent distress at this time. Patient is alert, ca1 oriented x 3, equal unlabored respirations, skin warm/dry/pink. Vital Signs: 18:15 BP 182 / 105; Pulse 97; Resp 16; Temp 97.8; Pulse Ox 100% on R/A; Weight 117.93 kg; hb Height 5 ft. 11 in. (180.34 cm); Pain 8/10; 19:00 BP 156 / 85; Pulse 89; Resp 17 S; Pulse Ox 100% on R/A; ca1 18:15 Body Mass Index 36.26 (117.93 kg, 180.34 cm) hb ED Course: 18:12 Patient arrived in ED. as 18:14 Triage completed. hb 18:15 Arm band placed on. 18:16 Linus Vega MD is Attending Physician. [facility] 18:26 Flavia Anna, JADON is Primary Nurse. ca1 18:35 Patient has correct armband on for positive identification. Bed in low position. Call ca1 light in reach. Side rails up X 1. Pulse ox on. NIBP on. 18:46 Foot Right 3 View XRAY In Process Unspecified. EDMS 18:51 Dejon Yen MD is Referral Physician. [facility] 19:08 No provider procedures requiring assistance completed. Patient did not have IV access ca1 during this emergency room visit. Administered Medications: 18:30 Drug: Motrin 800 mg Route: PO; ca1 18:53 Follow up: Response: No adverse reaction; Pain is decreased ca1 Outcome: 18:51 Discharge ordered by . [facility] 19:08 Discharged to home ambulatory. ca1 19:08 Condition: stable 19:08 Discharge instructions given to patient, Instructed on discharge instructions, follow up and referral plans. no drinking with medication, no driving heavy equipment, medication usage, Demonstrated understanding of instructions, follow-up care, medications, Prescriptions given X 2. 19:08 Patient left the ED. ca1 Signatures: Dispatcher [employer] EDWY Linus Vega MD MD cha Martinez, Amelia as Baxter, Heather, JADON RN Flavia Anna RN RN ca1
--- NOTE | 2019-07-26 18:54 | RAD REPORT ---
EXAM DESCRIPTION: RAD - Foot Right 3 View - 07/26/2019 6:46 pm CLINICAL HISTORY: PAIN COMPARISON: Foot Right 3 View dated 01/15/2018 FINDINGS: No fracture or dislocation is seen. Mild soft tissue swelling affects the great toe.
[2019-07-26 19:19] VITALS: TEMP 97.8; O2SAT 100
[2019-07-26 19:20] VITALS: BP 156/85
== END 2019-07-26 19:08 | disposition home or self-care (01) ==
LOC: ER 18:10
DX: M79.671 Pain in right foot (principal); I10 Essential (primary) hypertension; F17.210 Nicotine dependence, cigarettes, uncomplicated; Z91.030 Bee allergy status
CPT/HCPCS: 99284

== ENCOUNTER 2020-07-27 19:17 | Emergency (ER) | payer MEDICARE, SELFPAY ==
[2020-07-27] MEDS ORDERED: LIDOCAINE 1% MPF 30 ML VIAL ONE (19:43)
[2020-07-27] MEDS ORDERED: TETANUS & DIPHTHERIA TOX,ADULT 0.5 ML VIAL ONE (20:04)
--- NOTE | 2020-07-27 20:17 | EDPHYS ---
Physician Documentation [facility] Name: Do Vega Age: 24 yrs Sex: Male : 1995 Arrival Date: 07/27/2020 Time: 19:18 Bed 3 Private MD: ED Physician Rell Cope HPI: 07/27 20:11 This 24 yrs old Black Male presents to ER via Ambulatory with complaints of Laceration jmm To Arm. 20:11 Onset: The symptoms/episode began/occurred acutely, just prior to arrival. Associated jmm signs and symptoms: The patient has no apparent associated signs or symptoms. This is a 24 year old male with a history of crohns disease, htn that presents to the ED with a laceration to the right forearm which occurred after he broke into his window. Arm cut on glass. Patient does not suspect foreign body. Patient is not UTD on tetanus immunization. Historical: - Allergies: 19:33 Bees; lp1 - Home Meds: 19:33 None [Active]; lp1 - PMHx: 19:33 Hypertension; Crohn's; lp1 - PSHx: 19:33 None; lp1 - Immunization history:: Adult Immunizations up to date, Last tetanus immunization: unknown. - Social history:: Smoking status: Patient reports the use of cigarette tobacco products, smokes one-half pack cigarettes per day. ROS: 20:11 Constitutional: Negative for fever, chills, and weight loss, Cardiovascular: Negative jmm for chest pain, palpitations, and edema, Respiratory: Negative for shortness of breath, cough, wheezing, and pleuritic chest pain. 20:11 Skin: Positive for laceration(s). 20:11 All other systems are negative. Exam: 20:11 Constitutional: This is a well developed, well nourished patient who is awake, alert, jmm and in no acute distress. Head/Face: atraumatic. Eyes: EOMI, no conjunctival erythema appreciated ENT: Moist Mucus Membranes Neck: Trachea midline, Supple Chest/axilla: Normal chest wall appearance and motion. Cardiovascular: Regular rate and rhythm. No edema appreciated Respiratory: Normal respirations, no respiratory distress appreciated Abdomen/GI: Non distended, soft Back: Normal ROM 20:11 MS/ Extremity: Moves all extremities, no obvious deformities appreciated, no edema noted to the lower extremities Neuro: Awake and alert, normal gait Psych: Behavior is normal, Mood is normal, Patient is cooperative and pleasant 20:11 Skin: 8 cm laceration noted to the right forearm. Vital Signs: 19:25 BP 164 / 106 LA Sitting (auto/lg); Pulse 97 MON; Resp 16 S; Temp 98.5(TE); Pulse Ox ds4 100% on R/A; Weight 113.4 kg (R); Height 6 ft. 0 in. (182.88 cm) (R); 20:20 BP 141 / 70; Pulse 90; Resp 17; Pulse Ox 99% ; rr5 19:25 Body Mass Index 33.91 (113.40 kg, 182.88 cm) ds4 Laceration: 20:14 Wound Repair of 8cm ( 3.1in ) subcutaneous laceration to right arm. Distal jmm neuro/vascular/tendon intact. Anesthesia: Local anesthetic administered with 10 mls of 1% lidocaine. Wound prep: Extensive cleansing with betadine by id, Wound irrigation with saline. Subcutaneous tissue closed with 6 4-0 Vicryl using simple sutures and sterile technique. Skin closed using simple sutures and sterile technique. Patient tolerated well. MDM: 19:25 Patient medically screened. [facility] 20:14 Data reviewed: vital signs, nurses notes. Counseling: I had a detailed discussion with ruth the patient and/or guardian regarding: the historical points, exam findings, and any diagnostic results supporting the discharge/admit diagnosis, the need for outpatient follow up, to return to the emergency department if symptoms worsen or persist or if there are any questions or concerns that arise at home. ED course: Patient is alert and non toxic in appearance in the ED. I do not suspect FB. Patient is given wound infection return precautions. Patient understood and agrees with the plan of care. . 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 Exp: mg2 09/01/2022. Lot #: [id number]. } Route: IM; Site: left deltoid; 20:21 Follow up: Response: No adverse reaction; Medication administered at discharge. [facility] 20:21 Drug: [place] 10 mg-325 mg 1 tabs Route: PO; mg2 20:21 Follow up: Response: No adverse reaction; Medication administered at discharge. [facility] Disposition: 07/28 06:19 Co-signature as Attending Physician, Rell Cope MD. [facility] Disposition: 07/27/20 20:16 Discharged to Home. Impression: Forearm Laceration. - Condition is Stable. - Discharge Instructions: Laceration Care, Adult. - Prescriptions for Bactrim DS 800- 160 mg Oral Tablet - take 1 tablet by ORAL route every 12 hours for 10 days; 20 tablet. - Medication Reconciliation Form, Thank You Letter, Antibiotic Education, Prescription Opioid Use form. - Follow up: Private Physician; When: 7 - 10 days; Reason: Recheck today's complaints, Continuance of care, Staple/Suture removal, Re-evaluation by your physician. Signatures: Omkar Che PA PA [facility] Aurora Valladares RN RN lp1 Zafar Rich RN RN mg2 Kevin Grady RN RN rr5 Rell Cope MD MD [facility] Corrections: (The following items were deleted from the chart) 07/27 20:22 20:16 07/27/2020 20:16 Discharged to Home. Impression: Forearm Laceration. Condition is mg2 Stable. Forms are Medication Reconciliation Form, Thank You Letter, Antibiotic Education, Prescription Opioid Use. Follow up: Private Physician; When: 7 - 10 days; Reason: Recheck today's complaints, Continuance of care, Staple/Suture removal, Re-evaluation by your physician. [facility] 20:45 20:22 07/27/2020 20:16 Discharged to Home. Impression: Forearm Laceration. Condition is rr5 Stable. Discharge Instructions: Laceration Care, Adult. Prescriptions for Bactrim DS 800-160 mg Oral Tablet - take 1 tablet by ORAL route every 12 hours for 10 days; 20 tablet. and Forms are Medication Reconciliation Form, Thank You Letter, Antibiotic Education, Prescription Opioid Use. Follow up: Private Physician; When: 7 - 10 days; Reason: Recheck today's complaints, Continuance of care, Staple/Suture removal, Re-evaluation by your physician. mg2
--- NOTE | 2020-07-27 20:17 | ER ---
Nurse's Notes [facility] Name: Do Vega Age: 24 yrs Sex: Male : 1995 Arrival Date: 07/27/2020 Time: 19:18 Bed 3 Private MD: Diagnosis: Forearm Laceration Presentation: 07/27 19:28 Chief complaint: Patient states: Reports his house door was locked and attempted to go lp1 through window, cutting right arm on broken glass. Coronavirus screen: Client denies travel out of the [place] in the last 14 days. At this time, the client does not indicate any symptoms associated with coronavirus-19. Ebola Screen: No symptoms or risks identified at this time. Complicating Factors: There are no complicating factors for this patient. Initial Sepsis Screen: Does the patient meet any 2 criteria? No. Patient's initial sepsis screen is negative. Does the patient have a suspected source of infection? No. Patient's initial sepsis screen is negative. Risk Assessment: Do you want to hurt yourself or someone else? Patient reports no desire to harm self or others. Onset of symptoms was July 27, 2020 at 19:15. 19:28 Method Of Arrival: Ambulatory lp1 19:28 Acuity: PRESTON 4 lp1 Historical: - Allergies: 19:33 Bees; lp1 - Home Meds: 19:33 None [Active]; lp1 - PMHx: 19:33 Hypertension; Crohn's; lp1 - PSHx: 19:33 None; lp1 - Immunization history:: Adult Immunizations up to date, Last tetanus immunization: unknown. - Social history:: Smoking status: Patient reports the use of cigarette tobacco products, smokes one-half pack cigarettes per day. Screenin:33 Abuse screen: Denies threats or abuse. Denies injuries from another. Nutritional lp1 screening: No deficits noted. Tuberculosis screening: No symptoms or risk factors identified. Fall Risk None identified. Assessment: 20:08 General: Appears in no apparent distress. comfortable, Behavior is calm, cooperative. mg2 Pain: Complains of pain in right arm. Neuro: Level of Consciousness is awake, alert, obeys commands, Oriented to person, place, time, situation. Cardiovascular: Capillary refill < 3 seconds Patient's skin is warm and dry. Respiratory: Airway is patent Respiratory effort is even, unlabored, Respiratory pattern is regular, symmetrical. GI: No signs and/or symptoms were reported involving the gastrointestinal system. : No signs and/or symptoms were reported regarding the genitourinary system. EENT: No signs and/or symptoms were reported regarding the EENT system. Derm: Wound noted right arm Wound is new open lac approx. 6 inches lng, 1 inch deep. Musculoskeletal: Circulation, motion, and sensation intact. Capillary refill < 3 seconds. Injury Description: Laceration is clean. 20:20 Reassessment: Patient appears in no apparent distress at this time. Patient is alert, rr5 oriented x 3, equal unlabored respirations, skin warm/dry/pink. Steri-Strip applied to the end part of the laceration patient does not want it to be suture. discharge instruction given and explained without complaints made. Vital Signs: 19:25 BP 164 / 106 LA Sitting (auto/lg); Pulse 97 MON; Resp 16 S; Temp 98.5(TE); Pulse Ox ds4 100% on R/A; Weight 113.4 kg (R); Height 6 ft. 0 in. (182.88 cm) (R); 20:20 BP 141 / 70; Pulse 90; Resp 17; Pulse Ox 99% ; rr5 19:25 Body Mass Index 33.91 (113.40 kg, 182.88 cm) ds4 ED Course: 19:18 Patient arrived in ED. cl3 19:19 Omkar Che PA is PHCP. [facility] 19:19 Rell Cope MD is Attending Physician. [facility] 19:21 Zafar Rich, JADON is Primary Nurse. mg2 19:33 Triage completed. lp1 19:33 Arm band placed on left wrist. lp1 20:10 Assist provider with laceration repair on right arm that was between 7.6 to 12.5 cm mg2 using sutures. Set up tray. Performed by Omkar ADAM Dressed with 4X4s, Patient tolerated well. 13 stitches made under local anesthesia. Patient did not have IV access during this emergency room visit. 20:21 Patient has correct armband on for positive identification. 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 Exp: mg2 09/01/2022. Lot #: [id number]. } Route: IM; Site: left deltoid; 20:21 Follow up: Response: No adverse reaction; Medication administered at discharge. mg2 20:21 Drug: [place] 10 mg-325 mg 1 tabs Route: PO; mg2 20:21 Follow up: Response: No adverse reaction; Medication administered at discharge. mg2 Outcome: 20:16 Discharge ordered by . ruth 20:21 Discharged to home ambulatory. mg2 20:21 Condition: stable 20:21 Discharge instructions given to patient, Instructed on discharge instructions, follow up and referral plans. medication usage, Demonstrated understanding of instructions, follow-up care, medications, wound care, Prescriptions given X 1. 20:22 Patient left the ED. mg2 20:45 Patient left the ED. rr5 Signatures: Omkar Che PA PA jmm Pena, Laura, RN RN lp1 Byron Traore ds4 Zafar Rich RN RN mg2 Kevin Grady RN RN rr5 Martín Sharma cl3
[2020-07-27] MEDS ORDERED: HYDROCODONE/APAP 10/325 TAB ONE (20:23)
[2020-07-27 20:28] VITALS: TEMP 98.5
[2020-07-27 20:50] VITALS: BP 141/70; O2SAT 99
== END 2020-07-27 20:45 | disposition home or self-care (01) ==
LOC: ER 19:17
PROC: 0JQG0ZZ Repair Right Lower Arm Subcutaneous Tissue and Fascia, Open Approach (ICD-10-PCS; principal; 2020-07-27)
DX: S51.811A Laceration without foreign body of right forearm, initial encounter (principal); W25.XXXA Contact with sharp glass, initial encounter; Y93.89 Activity, other specified; Y92.9 Unspecified place or not applicable; Z23 Encounter for immunization; Z91.030 Bee allergy status; F17.210 Nicotine dependence, cigarettes, uncomplicated; I10 Essential (primary) hypertension
CPT/HCPCS: 90471; 90714; 99283

== ENCOUNTER 2023-03-17 17:53 | Emergency (ER) | payer SELFPAY ==
[2023-03-17 18:51] LABS: Absolute Lymphocytes (CBC) 2.7 K/uL (0.7-4.9); Hematocrit 45.8 % (39.6-49.0); Lymphocytes % 26.7 % (15.3-44.8); MCV 86.5 fL (80-100); MPV 8.8 fL (7.6-11.3); Platelets 273 thou/uL (152-406)
--- NOTE | 2023-03-17 18:59 | ER ---
Nurse's Notes [facility] Name: Do Vega Age: 27 yrs Sex: Male : 1995 Arrival Date: 03/17/2023 Time: 17:53 Bed IW10 Private MD: Diagnosis: Hyperglycemia, unspecified Presentation: 03/17 18:34 Chief complaint: Patient states: not feeling well and thinks his sugar is high. iw Coronavirus screen: At this time, the client does not indicate any symptoms associated with coronavirus-19. Ebola Screen: Patient negative for fever greater than or equal to 101.5 degrees Fahrenheit, and additional compatible Ebola Virus Disease symptoms Patient denies exposure to infectious person. Patient denies travel to an Ebola-affected area in the 21 days before illness onset. No symptoms or risks identified at this time. Initial Sepsis Screen: Does the patient meet any 2 criteria? No. Patient's initial sepsis screen is negative. Does the patient have a suspected source of infection? No. Patient's initial sepsis screen is negative. Risk Assessment: Do you want to hurt yourself or someone else? Patient reports no desire to harm self or others. Onset of symptoms was March 17, 2023. 18:34 Method Of Arrival: Ambulatory iw 18:34 Acuity: PRESTON 3 iw Historical: - Allergies: 18:35 Bees; iw - PMHx: 18:35 Crohn's; Hypertension; iw Assessment: 18:59 Reassessment: [facility], pt states, "I removed my IV and i'm leaving." mb9 ERP notified. Vital Signs: 18:34 BP 139 / 96; Pulse 90; Resp 16; Temp 99; Pulse Ox 100% on R/A; Weight 104.33 kg; Height iw 5 ft. 10 in. ; 18:34 Body Mass Index 33.00 (104.33 kg, 177.8 cm) iw ED Course: 17:56 Patient arrived in ED. mg5 17:57 Mi Burciaga FNP-C is [facility]. iw 18:06 Yvonne Rahman MD is Attending Physician. kb 18:35 Triage completed. iw 19:00 No provider procedures requiring assistance completed. IV discontinued, intact, mb9 bleeding controlled, No redness/swelling at site. Pressure dressing applied. Administered Medications: 19:00 Not Given (Patient Refused): NS 0.9% IV 1000 ml IV at 1000 ml once mb9 Point of Care Testing: Blood Glucose: 18:41 Blood Glucose: 389 mg/dL; iw Ranges: Outcome: 18:59 Discharge ordered by . destiny 19:00 Discharged to home ambulatory. mb9 19:00 Condition: stable 19:00 Discharge instructions given to patient, Instructed on discharge instructions, follow up and referral plans. 19:01 Patient left the ED. mb9 Signatures: Mi Burciaga, BUDDY-Kishan GOODWIN-Lillian Phelps RN RN Shanta Mart RN RN mb9 Haley Bates mg5
--- NOTE | 2023-03-17 18:59 | EDPHYS ---
Physician Documentation [facility] Name: Do Vega Age: 27 yrs Sex: Male : 1995 Arrival Date: 03/17/2023 Time: 17:53 Bed IW10 Private MD: ED Physician Yvonne Rahman HPI: 03/18 01:15 This 27 yrs old Black Male presents to ER via Ambulatory with complaints of High Blood kb Sugar. 01:15 Patient states he was standing outside and started feeling bad. Believes that his blood kb sugar is high. States he was diagnosed with diabetes last month but does not have a monitor. Historical: - Allergies: 03/17 18:35 Bees; iw - PMHx: 18:35 Crohn's; Hypertension; iw ROS: 03/18 01:14 Respiratory: Negative for shortness of breath, cough, wheezing, and pleuritic chest kb pain. Constitutional: Positive for malaise. All other systems are negative. Exam: 01:15 Constitutional: This is a well developed, well nourished patient who is awake, alert, kb and in no acute distress. Head/Face: Normocephalic, atraumatic. ENT: Moist Mucous membranes Cardiovascular: Regular rate and rhythm with a normal S1 and S2. No gallops, murmurs, or rubs. No pulse deficits. Respiratory: Respirations even and unlabored. No increased work of breathing. Talking in full sentences Abdomen/GI: Soft, non-tender. No distention Skin: Warm, dry with normal turgor. Normal color. MS/ Extremity: Pulses equal, no cyanosis. Neurovascular intact. Full, normal range of motion. Neuro: Awake and alert, GCS 15, oriented to person, place, time, and situation. Moves all extremities. Normal gait. Vital Signs: 03/17 18:34 BP 139 / 96; Pulse 90; Resp 16; Temp 99; Pulse Ox 100% on R/A; Weight 104.33 kg; Height iw 5 ft. 10 in. ; 18:34 Body Mass Index 33.00 (104.33 kg, 177.8 cm) iw MDM: 18:19 Patient medically screened. kb 03/18 01:15 Differential diagnosis: DKA, hyperglycemia. Data reviewed: vital signs, nurses notes. kb ED course: Patient elected to leave prior to return of diagnostic results and treatment.. 03/17 18:28 Order name: CBC with Diff; Complete Time: 18:55 iw 03/17 18:28 Order name: Basic Metabolic Panel; Complete Time: 01:17 iw 03/17 18:54 Order name: Glucose, Ancillary Testing; Complete Time: 18:55 EDMS 03/17 18:28 Order name: IV Start; Complete Time: 18:48 iw Administered Medications: 03/17 19:00 Not Given (Patient Refused): NS 0.9% IV 1000 ml IV at 1000 ml once mb9 Point of Care Testing: Blood Glucose: 18:41 Blood Glucose: 389 mg/dL; iw Ranges: Critical Glucose Levels:Adult <50 mg/dl or >400 mg/dl <40 mg/dl or >180 mg/dl Disposition Summary: 03/17/23 18:59 Discharge Ordered Location: Home kb Condition: Stable kb Diagnosis - Hyperglycemia, unspecified kb Followup: kb - With: Emergency Department - When: As needed - Reason: Worsening of condition Followup: kb - With: Private Physician - When: 2 - 3 days - Reason: Recheck today's complaints, Continuance of care, Re-evaluation by your physician Discharge Instructions: - Discharge Summary Sheet kb - Hyperglycemia, [id number] kb - Type 2 Diabetes Mellitus, Diagnosis, Adult, [id number] kb Forms: - Medication Reconciliation Form kb - Thank You Letter kb - Antibiotic Education kb - Prescription Opioid Use kb - Patient Portal Instructions kb - Leadership Thank You Letter kb Signatures: Dispatcher [employer] Mi Melgar, BRIA GOODWIN-Lillian Phelps, RN RN Shanta Goode RN mb9
[2023-03-17 19:02] LABS: Potassium 3.8 mEq/L (3.5-5.1)
[2023-03-17 19:47] VITALS: BP 139/96; TEMP 99; O2SAT 100
== END 2023-03-17 19:01 | disposition home or self-care (01) ==
LOC: ER 17:53
DX: E11.65 Type 2 diabetes mellitus with hyperglycemia (principal); I10 Essential (primary) hypertension; K50.90 Crohn's disease, unspecified, without complications; Z91.030 Bee allergy status
CPT/HCPCS: 36415; 80048; 82947; 85025; 99283

== ENCOUNTER 2024-06-13 10:19 | Emergency (ER) | payer SELFPAY ==
--- OUTSIDE RECORDS SUMMARY | 2024-06-13 10:21 | XMS REPORT | Continuity of Care Document ---
Author Name Unknown Address [address] [place] [address] [facility] Address [address] [place] [address] Care Team Providers Care Incident Analyst Name Role Phone [facility] Primary Care Physician Unavailable Gil MORLEY Attending Clinician Unavailable Randi Tejada DO Attending Clinician [phone] Gil Kelly Attending Clinician [phone] Allergies, Adverse Reactions, Alerts Allergy Name Allergy Type Status Severity Reaction(s) Onset Date Inactive Date Treating Clinician Comments Source NO KNOWN ALLERGIE S Drug Class Active [facility] Social History Social Habit Start Date Stop Date Quantity Comments Source Sexual orientation U [facility] Sex Assigned At 1995 00:00:00 1995 00:00:00 [facility] Smoking Status Start Date Stop Date Source Tobacco smoking consumption unknown [facility] Medications Ordered Medication Name Filled Medication Name Start Date Stop Date Current Medication? Ordering Clinician Indication Dosage Frequency Signature (SIG) Comments Components Source ondansetron (ZOFRAN-ODT ) disintegrat ing tablet 4 mg 11-02 01:45: 00 11-02 01:20 :00 No 4mg 4 mg, Oral, ONCE, 1 dose, On Thu11/02/23 at 2045, Routine [facility] benzonatate (TESSALON PERLES) capsule 200 mg 11-02 00:45: 00 11-02 01:21 :00 No 200mg 200 mg, Oral, ONCE, 1 dose, On 11/02/23 at 1945, KORIN [facility] azithromyci n (ZITHROMAX Z-GUILHERME) 250 mg tablet 11-01 00:00: 00 Yes [id number] 250mg Take 1 tablet by mouth SEE-INSTRU CTIONS. Take 500 mg day 1, then 250 mg days 2 to 5. [facility] benzonatate 200 mg capsule 11-01 00:00: 00 Yes [id number] 200mg Take 1 capsule by mouth 3 (three) times daily as needed for Cough for up to 20 doses. [facility] ondansetron 4 mg disintegrat ing tablet 11-01 00:00: 00 Yes [id number] 4mg Take 1 tablet by mouth every 8 (eight) hours as needed for Nausea and Vomiting (N/V). [facility] albuterol 90 mcg/actuati on inhaler 11-01 00:00: 00 Yes [id number] 2{puff} Inhale 2 Puffs every 4 (four) hours as needed for Wheezing or Shortness of Breath. [facility] Vital Signs Vital Name Observation Time Observation Value Comments S ourramila Systolic blood pressure 2023-11-03 01:23:00 160 mm[Hg] [facility] Diastolic blood pressure 2023-11-03 01:23:00 105 mm[Hg] [facility] Heart rate 2023-11-03 01:23:00 92 /min [facility] Body temperature 2023-11-03 01:23:00 36.56 Celina [facility] Respiratory rate 2023-11-03 01:23:00 18 /min [facility] Oxygen saturation in Arterial blood by Pulse oximetry 2023-11-03 01:23:00 99 /min [facility] Body height 2023-11-03 00:05:00 177.8 cm [facility] Procedures Procedure Date / Time Performed Performing Clinicia n Source RAPID STREP SCREEN FOR GROUP A 2023-11-03 00:10:00 Gil Morley [facility] RAPID INFLUENZA A/B 2023-11-03 00:10:00 Gil Morley e [facility] COVID-19 (ID NOW RAPID TESTING) 2023-11-03 00:10:00 Gil Morley [facility] Encounters Start Date/Time End Date/Time Encounter Type Admission Type Attending Clinicians Care Facility Care Department Encounter ID Source 2023-11-02 19:12:00 2023-11-02 20:30:00 Emergency X Gil MORLEY [facility] ERT [id number] [facility] 2023-11-02 19:12:00 2023-11-02 20:30:00 Emergency Randi Tejada Gil Morley [facility] [id number] [facility] Notes Date/Time Note Provider Source 2023-11-02 20:23:00 Awake, alert oriented X4, respiratory even and unlabored,skin w/d color appropriate for race, moves all ext well, pt encouraged to follow up with pcp and or return as needed Pt given printed and verbal discharge instructions regarding acute bacterial bronchitis, acute cough , patient verbralized understanding and signature obtained, patient denies any other concerns. Prescriptions provided Advised to seek medical attention for new/prolonged/worsening of symptoms, No adverse reaction to meds given in ER noted upon discharge Pt ambulated to the [facility] with steady gait Breana Chin RN [facility] 2023-11-02 19:02:38 Pt arrives ambulatory to ED c/o a sore throat x1 week. He states that he began feeling nausea yesterday. Denies vomiting. Jessie Hawkins RN [facility]
--- NOTE | 2024-06-13 10:52 | EDPHYS ---
Physician Documentation [facility] Name: Do Vega Age: 28 yrs Sex: Male : 1995 Arrival Date: 06/13/2024 Time: 10:19 Bed 11 Private MD: ED Physician Markus Waters HPI: 06/13 12:04 This 28 yrs old Black Male presents to ER via Ambulatory with complaints of Knee Pain. sb4 13:44 patient reports right knee pain x 1 month. he had an MRI done a few weeks back and was sb4 told he had a torn ACL and meniscus. was initially prescribed tylenol #3 and meloxicam and told he needed surgery but ran out of medications and has not been able to afford the surgery. he comes here today complaining of pain. has been using a knee brace but no crutches, weight bearing daily. Historical: - Allergies: 10:42 Bees; iw - PMHx: 10:42 Crohn's; Hypertension; iw - Immunization history:: Adult Immunizations not up to date. - Infectious Disease History:: Denies. - Social history:: Smoking status: Reported history of juuling and/or vaping. ROS: 13:44 Constitutional: Negative for fever, chills, and weight loss, sb4 13:44 MS/extremity: Positive for injury or acute deformity, pain, of the right knee, 13:44 All other systems are negative, Exam: 13:44 Constitutional: This is a well developed, well nourished patient who is awake, alert, sb4 and in no acute distress. Head/Face: Normocephalic, atraumatic. Eyes: Extra-ocular motions intact. Periorbital areas with no swelling, redness, or edema. ENT: Mucous membranes moist. Skin: Warm, dry with normal turgor. Normal color with no rashes, no lesions, and no evidence of cellulitis. 13:44 Musculoskeletal/extremity: Joints: the right knee displays pain at rest, painful range of motion, swelling, tenderness, Weight bearing: able to fully bear weight, without difficulty, right knee brace in place. Vital Signs: 10:39 BP 155 / 106; Pulse 85; Resp 16; Temp 98.2; Pulse Ox 100% on R/A; Weight 108.86 kg; iw Height 5 ft. 10 in. ; Pain 02/19; 10:39 Body Mass Index 34.44 (108.86 kg, 177.8 cm) iw 10:39 Pain Scale: Adult iw MDM: 10:44 Medical Screening Exam initiated sb4 13:47 Data reviewed: vital signs, nurses notes, and as a result, I will discharge patient. 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 06/13 10:50 Order name: Crutches; Complete Time: 11:30 sb4 Administered Medications: 11:30 Drug: Hydrocodone-Acetaminophen PO (7.5 mg-325 mg) 1 tabs PO once Route: PO; iw 11:30 Not Given (Patient Refused): [id number] mg IM once iw Disposition Summary: 06/13/24 10:51 Discharge Ordered Notes: Location: Home sb4 Problem: an ongoing problem sb4 Symptoms: have improved sb4 Condition: Stable sb4 Diagnosis - Right knee pain- torn ACL, subsequent encounter sb4 Followup: sb4 - With: Dejon Yen MD - When: 2 - 3 days - Reason: Recheck today's complaints, Re-evaluation by your physician Followup: sb4 - With: Matthew Maldonado MD - When: 2 - 3 days - Reason: Recheck today's complaints, Re-evaluation by your physician Followup: sb4 - With: Robert Weston MD - When: 2 - 3 days - Reason: Recheck today's complaints, Re-evaluation by your physician Discharge Instructions: - Discharge Summary Sheet sb4 - Acute Knee Pain, Adult, [id number] sb4 - Anterior Cruciate Ligament Tear sb4 Forms: - Patient Portal Instructions sb4 - Leadership Thank You Letter sb4 Prescriptions: - meloxicam 7.5 mg Oral tablet - take 1 tablet ORAL route daily; 21 tablet; Refills: 0, Product Selection sb4 Permitted - methocarbamol 500 mg Oral tablet - take 2 tablets ORAL route every 6 hours; 30 tablet; Refills: 0, Product sb4 Selection Permitted Signatures: Lillian Hawkins RN RN Eli Sue, PA-C PA-C sb4
--- NOTE | 2024-06-13 10:52 | ER ---
Nurse's Notes [facility] Name: Do Vega Age: 28 yrs Sex: Male : 1995 Arrival Date: 06/13/2024 Time: 10:19 Bed 11 Private MD: Diagnosis: Right knee pain- torn ACL, subsequent encounter Presentation: 06/13 10:39 Chief complaint: Patient states: right knee pain, has had a MRI and was told he has a iw torn ACL, has not had any pain medicine, the injury happened at work about a month ago , initial injury occurred while playing basketball about 2 years ago. Coronavirus screen: At this time, the client does not indicate any symptoms associated with coronavirus-19. Ebola Screen: No symptoms or risks identified at this time. Initial Sepsis Screen: Does the patient meet any 2 criteria? No. Patient's initial sepsis screen is negative. Does the patient have a suspected source of infection? No. Patient's initial sepsis screen is negative. Risk Assessment: Do you want to hurt yourself or someone else?. Onset of symptoms was April 2024. 10:39 Method Of Arrival: Ambulatory iw 10:39 Acuity: PRESTON 4 iw Triage Assessment: 11:00 General: Appears in no apparent distress. Behavior is calm, cooperative. iw Historical: - Allergies: 10:42 Bees; iw - PMHx: 10:42 Crohn's; Hypertension; iw - Immunization history:: Adult Immunizations not up to date. - Infectious Disease History:: Denies. - Social history:: Smoking status: Reported history of juuling and/or vaping. Screenin:38 [facility] ED Fall Risk Assessment (Adult) History of falling in the last 3 months, iw including since admission No falls in past 3 months (0 pts) Confusion or Disorientation No (0 pts) Intoxicated or Sedated No (0 pts) Impaired Gait No (0 pts) Mobility Assist Device Used No (0 pt) Altered Elimination No (0 pt) Score/Fall Risk Level 0 - 2 = Low Risk Oriented to surroundings, Maintained a safe environment. Abuse screen: Denies threats or abuse. Denies injuries from another. Nutritional screening: No deficits noted. Tuberculosis screening: No symptoms or risk factors identified. Assessment: 11:00 General: Appears in no apparent distress. Behavior is calm, cooperative. Pain: iw Complains of pain in right leg and right knee. Neuro: Level of Consciousness is awake, alert, obeys commands, Oriented to person, place, time, situation, Moves all extremities. Cardiovascular: Patient's skin is warm and dry. Respiratory: Respiratory effort is even, unlabored, Respiratory pattern is regular. Derm: Skin is intact, is healthy with good turgor. Musculoskeletal: Range of motion: limited in right knee. Vital Signs: 10:39 BP 155 / 106; Pulse 85; Resp 16; Temp 98.2; Pulse Ox 100% on R/A; Weight 108.86 kg; iw Height 5 ft. 10 in. ; Pain 8/10; 10:39 Body Mass Index 34.44 (108.86 kg, 177.8 cm) iw 10:39 Pain Scale: Adult iw ED Course: 10:22 Patient arrived in ED. mg5 10:23 [facility] sb4 10:23 Markus Waters MD is Attending Physician. sb4 10:42 Triage completed. iw 10:43 Arm band placed on. iw 10:51 Dejon Yen MD is Referral Physician. sb4 10:51 Matthew Maldonado MD is Referral Physician. sb4 10:51 Robert Weston MD is Referral Physician. sb4 11:18 Lillian Hawkins RN is Primary Nurse. iw 11:38 No provider procedures requiring assistance completed. Patient did not have IV access iw during this emergency room visit. Administered Medications: 11:30 Drug: Hydrocodone-Acetaminophen PO (7.5 mg-325 mg) 1 tabs PO once Route: PO; iw 11:30 Not Given (Patient Refused): [id number] mg IM once iw Medication: 11:00 VIS not applicable for this client. iw Outcome: 10:51 Discharge ordered by . sb4 11:38 Discharged to home ambulatory, with crutches, iw 11:38 Condition: good 11:38 Discharge instructions given to patient, Instructed on discharge instructions, follow up and referral plans. medication usage, Demonstrated understanding of instructions, follow-up care, medications, Prescriptions given X 2, 11:39 Patient left the ED. iw Signatures: Lillian Hawkins RN RN iw Eli Mason PA-C PA-C sb4 Haley Bates mg5
[2024-06-13] MEDS ORDERED: HYDROCODONE/APAP 7.5/325 MG TAB ONE (11:20)
[2024-06-13] MEDS ORDERED: KETOROLAC 30 MG/ML INJ ONE (11:20)
[2024-06-13 12:15] VITALS: BP 155/106; TEMP 98.2; O2SAT 100
== END 2024-06-13 11:39 | disposition home or self-care (01) ==
LOC: ER 10:19
DX: M25.561 Pain in right knee (principal); S83.401D Sprain of unspecified collateral ligament of right knee, subsequent encounter
CPT/HCPCS: 99283